=== PATIENT | male | born 1950 | race Caucasian/White ===

== ENCOUNTER → 2023-11-11 11:43 | Outpatient (REF) | payer MEDICARE, SELFPAY ==
[2023-11-11 12:27] LABS: % Basophils 0.6 % (0-2); % Eosinophils 5.8 % (0-6); % Lymphocytes 46.7 % (20.5-51.1); % Monocytes 7.5 % (1.7-9.3); % Neutrophils 39.4 % (42.2-75.2); Absolute Eosinophils 0.3 10^3/uL (0-0.7); Absolute Lymphocytes 2.5 10^3/uL (1.2-3.4); Absolute Monocytes 0.4 10^3/uL (0.1-0.6); Absolute Neutrophils 2.1 10^3/uL (1.4-6.5); Hematocrit 37.9 % (39.0-52.0); Hemoglobin 12.5 g/dL (13.0-18.0); Mean Corpuscular Hgb 31.9 pg (27.0-31.0); Mean Corpuscular Volume 96.7 fL (80.0-94.0); Mean Platelet Volume 9.9 fL (7.4-10.4); Nucleated Red Blood Cells % 0 % (-); Platelet Count 261 10^3/uL (130-400); Red Blood Cell Count 3.92 10^6/uL (4.70-6.10); Red Cell Dist. Width 12.5 % (11.5-14.5); White Blood Cell Count 5.3 10^3/uL (4.8-10.8)
== END ==
LOC: REG 11:43
PROVIDERS: ATTENDING PHYSICIAN Internal Medicine Gastroenterology; FAMILY PHYSICIAN Family Medicine
DX: K63.3 Ulcer of intestine (principal)
CPT/HCPCS: 36415; 85025

== ENCOUNTER → 2023-11-13 07:21 | Outpatient (REF) | payer MEDICARE, SELFPAY | LOC: MRI 3T 07:21 | PROVIDERS: ATTENDING PHYSICIAN Internal Medicine Gastroenterology; FAMILY PHYSICIAN Family Medicine | DX: K63.3 Ulcer of intestine (principal) | CPT/HCPCS: 72197; 74183; A9575 ==

== ENCOUNTER → 2023-11-18 13:24 | Outpatient (REF) | payer MEDICARE, SELFPAY ==
[2023-11-22 02:29] LABS: Calprotectin, Fecal 176 ug/g (<=49)
== END ==
LOC: REG 13:24
PROVIDERS: ATTENDING PHYSICIAN Internal Medicine Gastroenterology; FAMILY PHYSICIAN Family Medicine
DX: K63.3 Ulcer of intestine (principal)
CPT/HCPCS: 83993

== ENCOUNTER → 2024-01-07 15:27 | Outpatient (REF) | payer MEDICARE, SELFPAY ==
[2024-01-07 16:32] LABS: % Basophils 0.5 % (0-2); % Eosinophils 4.3 % (0-6); % Immature Granulocytes 0.2 % (0-0.5); % Lymphocytes 33.9 % (20.5-51.1); % Monocytes 7.4 % (1.7-9.3); % Neutrophils 53.7 % (42.2-75.2); Absolute Eosinophils 0.3 10^3/uL (0-0.7); Absolute Lymphocytes 2.1 10^3/uL (1.2-3.4); Absolute Monocytes 0.5 10^3/uL (0.1-0.6); Absolute Neutrophils 3.3 10^3/uL (1.4-6.5); Hematocrit 36.8 % (39.0-52.0); Hemoglobin 12.3 g/dL (13.0-18.0); Mean Corp Hgb Conc. 33.4 g/dL (33.0-37.0); Mean Corpuscular Hgb 31.1 pg (27.0-31.0); Mean Corpuscular Volume 93.2 fL (80.0-94.0); Mean Platelet Volume 10.1 fL (7.4-10.4); Nucleated Red Blood Cells % 0 % (-); Platelet Count 260 10^3/uL (130-400); Red Blood Cell Count 3.95 10^6/uL (4.70-6.10); Red Cell Dist. Width 12.2 % (11.5-14.5); White Blood Cell Count 6.1 10^3/uL (4.8-10.8)
[2024-01-07 16:43] LABS: Iron 79 ug/dl (49-181)
[2024-01-07 16:53] LABS: Percent Saturation 26 % (20-50); Total Iron Binding Capacity 298 ug/dl (261-462)
[2024-01-11 12:03] LABS: Calprotectin, Fecal 58 ug/g (<=49)
== END ==
LOC: REG 15:27
PROVIDERS: ATTENDING PHYSICIAN Physician Assistant; FAMILY PHYSICIAN Family Medicine
DX: K63.3 Ulcer of intestine (principal); D64.0 Hereditary sideroblastic anemia
CPT/HCPCS: 36415; 82728; 83540; 83550; 83993; 85025

== ENCOUNTER → 2024-04-07 12:23 | Outpatient (REF) | payer MEDICARE, SELFPAY ==
[2024-04-07 13:27] LABS: % Basophils 0.7 % (0-2); % Eosinophils 6.4 % (0-6); % Immature Granulocytes 0.2 % (0-0.5); % Lymphocytes 38.6 % (20.5-51.1); % Monocytes 8.5 % (1.7-9.3); % Neutrophils 45.6 % (42.2-75.2); Absolute Eosinophils 0.4 10^3/uL (0-0.7); Absolute Lymphocytes 2.2 10^3/uL (1.2-3.4); Absolute Monocytes 0.5 10^3/uL (0.1-0.6); Absolute Neutrophils 2.6 10^3/uL (1.4-6.5); Hematocrit 35.1 % (39.0-52.0); Hemoglobin 11.8 g/dL (13.0-18.0); Mean Corp Hgb Conc. 33.6 g/dL (33.0-37.0); Mean Corpuscular Hgb 31.6 pg (27.0-31.0); Mean Corpuscular Volume 93.9 fL (80.0-94.0); Nucleated Red Blood Cells % 0 % (-); Platelet Count 240 10^3/uL (130-400); Red Blood Cell Count 3.74 10^6/uL (4.70-6.10); Red Cell Dist. Width 12.4 % (11.5-14.5); White Blood Cell Count 5.8 10^3/uL (4.8-10.8)
[2024-04-07 13:59] LABS: Iron 47 ug/dl (49-181)
[2024-04-07 14:09] LABS: Percent Saturation 15 % (20-50); Total Iron Binding Capacity 300 ug/dl (261-462)
[2024-04-07 14:35] LABS: Ferritin 86.9 ng/ml (17.9-464.0)
== END ==
LOC: REG 12:23
PROVIDERS: ATTENDING PHYSICIAN Internal Medicine Gastroenterology; FAMILY PHYSICIAN Family Medicine
DX: K63.3 Ulcer of intestine (principal); D64.9 Anemia, unspecified
CPT/HCPCS: 36415; 82728; 83540; 83550; 85025

== ENCOUNTER → 2024-04-29 15:52 | Outpatient (REF) | payer MEDICARE, SELFPAY ==
[2024-04-29 16:42] LABS: % Basophils 0.4 % (0-2); % Eosinophils 5.5 % (0-6); % Lymphocytes 39.6 % (20.5-51.1); % Monocytes 8.1 % (1.7-9.3); % Neutrophils 46.4 % (42.2-75.2); Absolute Eosinophils 0.3 10^3/uL (0-0.7); Absolute Lymphocytes 1.9 10^3/uL (1.2-3.4); Absolute Monocytes 0.4 10^3/uL (0.1-0.6); Absolute Neutrophils 2.2 10^3/uL (1.4-6.5); Hematocrit 32.1 % (39.0-52.0); Hemoglobin 11.1 g/dL (13.0-18.0); Mean Corp Hgb Conc. 34.6 g/dL (33.0-37.0); Mean Corpuscular Hgb 32.6 pg (27.0-31.0); Mean Corpuscular Volume 94.4 fL (80.0-94.0); Mean Platelet Volume 10.3 fL (7.4-10.4); Nucleated Red Blood Cells % 0 % (-); Platelet Count 217 10^3/uL (130-400); Red Cell Dist. Width 12.2 % (11.5-14.5); White Blood Cell Count 4.7 10^3/uL (4.8-10.8)
[2024-04-29 16:52] LABS: Iron 55 ug/dl (49-181)
[2024-04-29 16:57] LABS: Depakane 41.2 ug/ml (50.0-120.0)
[2024-04-29 17:29] LABS: Ferritin 97.6 ng/ml (17.9-464.0)
== END ==
LOC: REG 15:52
PROVIDERS: ATTENDING PHYSICIAN Internal Medicine Gastroenterology; FAMILY PHYSICIAN Family Medicine
DX: K63.3 Ulcer of intestine (principal); D64.9 Anemia, unspecified
CPT/HCPCS: 36415; 80164; 82728; 83540; 83993; 85025

== ENCOUNTER → 2024-05-17 11:22 | Outpatient (REF) | payer MEDICARE, SELFPAY | LOC: REG 11:22 | PROVIDERS: ATTENDING PHYSICIAN Internal Medicine Gastroenterology; FAMILY PHYSICIAN Family Medicine | DX: K63.3 Ulcer of intestine (principal) | CPT/HCPCS: 83520; 83993 ==

== ENCOUNTER → 2024-07-28 13:57 | Outpatient (REF) | payer MEDICARE, SELFPAY ==
[2024-07-28 15:09] LABS: % Basophils 0.6 % (0-2); % Eosinophils 4.3 % (0-6); % Immature Granulocytes 0.2 % (0-0.5); % Lymphocytes 28.6 % (20.5-51.1); % Monocytes 8.2 % (1.7-9.3); % Neutrophils 58.1 % (42.2-75.2); Absolute Eosinophils 0.2 10^3/uL (0-0.7); Absolute Lymphocytes 1.5 10^3/uL (1.2-3.4); Absolute Monocytes 0.4 10^3/uL (0.1-0.6); Absolute Neutrophils 3.1 10^3/uL (1.4-6.5); Hematocrit 37.5 % (39.0-52.0); Hemoglobin 12.7 g/dL (13.0-18.0); Mean Corp Hgb Conc. 33.9 g/dL (33.0-37.0); Mean Corpuscular Hgb 30.5 pg (27.0-31.0); Mean Corpuscular Volume 90.1 fL (80.0-94.0); Mean Platelet Volume 9.9 fL (7.4-10.4); Nucleated Red Blood Cells % 0 % (-); Platelet Count 254 10^3/uL (130-400); Red Blood Cell Count 4.16 10^6/uL (4.70-6.10); Red Cell Dist. Width 12.5 % (11.5-14.5); White Blood Cell Count 5.4 10^3/uL (4.8-10.8)
[2024-07-28 15:22] LABS: Iron 84 ug/dl (49-181)
== END ==
LOC: RAD 13:57
PROVIDERS: ATTENDING PHYSICIAN Internal Medicine Gastroenterology; FAMILY PHYSICIAN Family Medicine; OTHER PHYSICIAN Nurse Practitioner; REFERRING PHYSICIAN Specialist
DX: K63.3 Ulcer of intestine (principal); M25.512 Pain in left shoulder
CPT/HCPCS: 36415; 73030; 82728; 83540; 85025

== ENCOUNTER → 2024-08-18 11:22 | Outpatient (REF) | payer MEDICARE, SELFPAY | LOC: REG 11:22 | PROVIDERS: ATTENDING PHYSICIAN Internal Medicine Gastroenterology | DX: K63.3 Ulcer of intestine (principal) | CPT/HCPCS: 83993 ==

== ENCOUNTER 2024-12-16 09:06 | Inpatient (IN) | payer MEDICARE, SELFPAY ==
[2024-11-25 14:05] LABS: Hematocrit 37.6 % (39.0-52.0); Hemoglobin 12.4 g/dL (13.0-18.0); Mean Corpuscular Hgb 31.6 pg (27.0-31.0); Mean Corpuscular Volume 95.7 fL (80.0-94.0); Mean Platelet Volume 10.1 fL (7.4-10.4); Platelet Count 286 10^3/uL (130-400); Red Blood Cell Count 3.93 10^6/uL (4.70-6.10); Red Cell Dist. Width 12.7 % (11.5-14.5); White Blood Cell Count 5.2 10^3/uL (4.8-10.8)
[2024-11-25 14:08] VITALS: BMI 30.9
[2024-11-25 14:11] LABS: ALT (SGPT) 16 U/L (0-50); AST (SGOT) 21 U/L (17-59); Albumin 4.4 g/dl (3.5-5.0); Alkaline Phosphatase 89 U/L (38-126); Blood Urea Nitrogen 26 mg/dl (9-20); Calcium 9.7 mg/dl (8.4-10.2); Carbon Dioxide 33 mmol/L (22-30); Chloride 101 mmol/L (98-107); Estimated Creatinine Clearance 66 ml/min; Glucose 91 mg/dl (70-99); Potassium 5.1 mmol/L (3.5-5.1); Sodium 142 mmol/L (135-145); Total Bilirubin 0.3 mg/dl (0.2-1.3); eGFR > 60.00
--- NOTE | 2024-11-25 14:58 | HPS.HSE ---
Family Physician
-
Family Physician: Efraín Adam
Chief Complaint
-
Advanced primary osteoarthritis of the left knee.
History of Present Illness
The patient is a 74-year-old male presenting today for advanced primary osteoarthritis of the left knee. The patient reports significant left knee pain associated with this diagnosis. He notes that his current left knee pain is greatly
interfering with his activities of daily living and is overall impacting his quality of life. He has tried and failed multiple conservative treatment measures in the past for his left knee pain. These conservative treatment measures include activity
modification, self-directed therapeutic exercises, medical management with Tylenol, Hydromorphone extended release, and Oxycodone as needed, intra-articular injections, and the application of ice and/or heat. Recent x-ray findings of the left knee
confirmed advanced medial joint space narrowing and posterior osteophyte formation. He was determined to be in need of a left total knee arthroplasty. He denies any current complaints today such as chest pain, shortness of breath, palpitations,
nausea, vomiting, diarrhea, lightheadedness, dizziness, cough, sore throat, or fever.
Medical History
Past Medical History
Past Medical History: Reports Other
Additional Past Medical History:
1. Osteoarthritis, status post right reverse total shoulder arthroplasty, 12/2021, by Dr. Damion Moreira.
2. Hypertension.
3. Hypercholesterolemia.
4. Coronary artery disease/NSTEMI, 2008, treated medically.
5. Orthostatic hypotension.
6. Obstructive sleep apnea, non-compliant with CPAP.
7. GERD.
8. Colon polyps.
9. Irritable bowel syndrome.
10. Cholelithiasis, asymptomatic.
11. Remote hepatitis B.
12. History of ileal erosions.
13. Frequent headaches.
14. Small lacunar infarct anterior limb of internal capsule bilaterally on head CT 2014.
15. Cervical stenosis with radiculopathy.
16. Multilevel degenerative disc disease.
17. Sciatica.
18. BPH.
19. Staph aureus and Strep pyogenes cellulitis of right lower extremity, 2008, treated with IV Cefazolin.
20. Ambulatory dysfunction with balance difficulties and history of falls.
21. Chronic pain syndrome with opioid dependence.
22. Multifactorial anemia.
23. Anxiety.
24. Depression.
25. Bipolar disorder.
26. Glaucoma.
27. Insomnia.
28. Prediabetes, A1c 5.7.
29. Obesity, BMI 30.9.
Past Surgical History: Reports Other
Additional Past Surgical History:
1. Right reverse total shoulder arthroplasty, 12/2021, by Dr. Damion Moreira.
2. Right rotator cuff repair.
3. Bilateral carpal tunnel release.
4. Left knee partial medial and lateral meniscectomy x2.
5. L4-L5 laminectomy.
6. Anterior cervical discectomy and fusion.
7. Open reduction, internal fixation of left forearm and pelvis fracture.
8. LASIK eye surgery.
9. Glaucoma surgery.
10. Bilateral cataract extraction.
11. Multiple colonoscopies.
12. Multiple endoscopies.
Social History
Tobacco: Non-smoker
Alcohol: None
Personal: (He reports his ex-, son, and sister in law will all be helping him post-procedure. He is hopeful to do outpatient PT starting the Friday after his surgery. )
Living: Alone (in a 2 story home with 1 step to enter in. His bedroom is reportedly on the second floor; however, he typically sleeps in a recliner on the first floor. There is a powder room on the first floor. )
Family History
Family History: Not pertinent
Allergies / Home Medications
Allergy/Medication List:
Home medications:
1. Lisinopril 2.5 mg p.o. daily.
2. Omeprazole 20 mg p.o. daily.
3. Ferrous sulfate 325 mg p.o. every evening.
4. Oxycodone 10-20 mg p.o. every 8 hours as needed.
5. Hydromorphone extended release 12 mg p.o. daily.
6. Divalproex sodium extended release 500 mg p.o. at bedtime.
7. Cyanocobalamin a 1000 mcg p.o. every evening.
8. Tamsulosin 0.4 mg p.o. daily.
9. Metoprolol Tartrate 25 mg p.o. daily.
10. Duloxetine HCL 60 mg p.o. every evening.
11. Bupropion HCL 150 mg p.o. twice a day.
12. Budesonide 3 mg p.o. daily.
13. Colace 100 mg p.o. twice a day.
14. Atorvastatin calcium 20 mg p.o. every evening.
15. Milk of magnesia 15 ml p.o. daily as needed.
16. Quetiapine 50 mg p.o. at bedtime.
17. Zinc 50 mg p.o. daily.
Allergies: Cyclobenzaprine.
Review of Systems
-
A 12 point ROS was completed and negative except as noted: Yes
Physical Exam
Vital Signs
Blood pressure 116/79. Heart rate 87. Respirations 18. Pulse ox 97%.
Height 5 feet, 9 inches. Weight 95 kg. BMI 30.9.
Physical Exam
General: Well Developed, Well Nourished and No Apparent Distress
HEENT: NormoCephalic, Moist mucous membranes, Atraumatic and PERRLA
Respiratory: Clear
Cardiac: Regular Rhythm
GI: Soft, Non Tender, Non Distended and Other (Obese. )
Musculoskeletal: Other (Left knee and lower extremity: Varus alignment. Trace effusion. ROM 5-130. Tenderness to palpation of medial joint line and peripatellar. Pain noted with flexion and abduction of left shoulder. )
Skin: Warm and Dry
Neuro: AO x 3 and Nonfocal/grossly intact
Laboratory Results
-
11/25/24 12:58
11/25/24 12:58
Laboratory Results
Total Bilirubin 0.3 mg/dl (0.2-1.3) 11/25/24 12:58
AST 21 U/L (17-59) 11/25/24 12:58
ALT 16 U/L (0-50) 11/25/24 12:58
Alkaline Phosphatase 89 U/L (38-126) 11/25/24 12:58
Hemoglobin A1c 5.7.
MRSA nasal screen negative.
EKG to be provided by Cardiology.
Impression/Plan
-
CLEARANCES:
1. Primary medical, Dr. Efraín Adam, cleared.
Primary medical phone number: [phone].
2. Cardiology, Dr. Jack Carson, cleared.
3. Dental waived.
IMPRESSION/PLAN:
1. Advanced primary osteoarthritis of the left knee in need of a left total knee arthroplasty by Dr. Shaka Perez on 12/16/2024. The benefits and risks of the procedure have been explained to the patient. The patient understands these risks and
wishes to proceed.
2. DVT prophylaxis: Aspirin with bilateral venous compression devices.
3. Orthostatic hypotension: We will monitor orthostatic vital signs throughout his admission. He will be provided with intravenous fluids and Midodrine will be ordered if felt indicated.
4. Ambulatory dysfunction with balance difficulties and history of falls: The patient will be placed on fall precautions post-operatively.
5. Chronic pain syndrome with opioid dependence: Dr. Villalta of pain management would prefer Orthopedics initially handle the patient's pain management post-procedure. He has, however, recommended the patient increase his Oxycodone from every 8
hours as needed to every 4-6 hours as needed (max of 5 doses daily) for breakthrough pain. He will continue his Hydromorphone ER. He was advised to take this the morning of his procedure and bring it in with him for inpatient use. We will also
include Lyrica and a Prednisone steroid taper. Valium will be considered at bedtime as needed.
6. Multifactorial anemia: His anemia is in the setting of both iron and vitamin B12 deficiency. He was advised to continue both of these supplements pre-operatively. The patient's hemoglobin will be monitored closely post-procedure.
7. Left shoulder dysfunction: The patient reported ongoing left shoulder discomfort and stiffness during his pre-operative appointment. He was noted to have pain with flexion and abduction of the left shoulder. The patient was encouraged to mention
this to his surgeon's office; however, he declined. He mentioned he wanted to address his left knee first before perusing treatment for the shoulder. Concerns were discussed with his surgeon pre-operatively. We will assess further with PT and OT
while inpatient and await their recommendations regarding discharge planning. As stated previously, the patient would prefer outpatient physical therapy if able.
Patient's phone number: [phone].
Patient's contact (Yissel Phipps - Sister): [phone].
[2024-11-25 15:36] VITALS: BMI 30.9
[2024-11-26 12:45] LABS: Glycohemoglobin (HgbA1c) 5.7 % (4.0-5.6)
[2024-12-16] VITALS (15 sets, daily range): BP systolic 129–157; BP diastolic 73–99; PULSE 81; O2SAT 97
--- NOTE | 2024-12-16 07:58 | W.PN.UPDATE ---
Update Note
Progress Note Update
L knee OA s/p L TKA w/ Dr Perez 12/16/24
- s/p R Reverse TSA, 12/2021, by Dr Moreira
DVT prophylaxis - ASA, b/l venous foot pumps
HTN - + parameters - monitor BP
Orthostatic hypotension - orthostatics q8h
- IVF running
- Will order Midodrine w/ SBP parameters
- Minimize opioids as able
Obstructive sleep apnea, non-compliant with CPAP - monitor O2
- IS
- Add supplemental O2 HS
GERD - continue PPI therapy
History of ileal erosions - minimize NSAIDs
Cervical stenosis with radiculopathy and sciatica - continue home Duloxetine
- Add Lyrica to accommodate for post-surgical pain
BPH - monitor voids
- Continue home Flomax
Staph aureus and Strep pyogenes cellulitis of right lower extremity, 2008, treated with IV Cefazolin - IV Ancef trae-op
- Would benefit from Cefadroxil upon d/c
Ambulatory dysfunction with balance difficulties and history of falls - fall precautions
Chronic pain syndrome with opioid dependence - continue hydromorphone ER
- Multifactorial pain regimen to include Tylenol ATC, Lyrica BID, Valium HSPRN, Duloxetine, Prednisone taper, and Oxycodone 10-15 mg q4hprn for breakthrough pain
- Of note, ADR to Flexeril
Multifactorial anemia - non-invasive hgb in AM
- Continue PO iron, B12
Hypercholesterolemia
Coronary artery disease/NSTEMI, 2008, treated medically
Colon polyps
Irritable bowel syndrome
Cholelithiasis, asymptomatic
Remote hepatitis B
Frequent headaches.
Small lacunar infarct anterior limb of internal capsule bilaterally on head CT 2014
Multilevel degenerative disc disease
Anxiety
Depression
Bipolar disorder
Glaucoma
Insomnia
Prediabetes, A1c 5.7
Obesity, BMI 30.9
[2024-12-16] MEDS: NORMOSOL-R/PLASMALYTE-A 1000 IV ×2 (09:29→16:25)
[2024-12-16] MEDS: CELEBREX 200 MG PO (09:30)
[2024-12-16] MEDS: TYLENOL 650 MG PO ×3 (09:30→21:22)
[2024-12-16] MEDS: DILAUDID 0.5 MG IV ×2 (13:53→14:14)
[2024-12-16] MEDS: ROXICODONE 5 MG PO (14:33)
[2024-12-16] MEDS: TORADOL 15 MG IV (14:33)
--- NOTE | 2024-12-16 15:38 | PTCARENOTE ---
Patient admitted from PACU post left total knee replacement.The patient reports his pain at a 4 out of 10.Neurovascular assessment is within normal limits and ongoing.Vital signs are stable.The dressing is intact without drainage.The patient is in
his bed with the call agustin in reach.
[2024-12-16] MEDS: LIPITOR 20 MG PO (16:21)
[2024-12-16] MEDS: DELTASONE 40 MG PO (16:21)
[2024-12-16] MEDS: PROTONIX 40 MG PO (16:21)
[2024-12-16] MEDS: FLOMAX 0.4 MG PO (16:24)
[2024-12-16] MEDS: LOPRESSOR 25 MG PO (16:24)
--- NOTE | 2024-12-16 17:31 | OR.RPT ---
Operative Report
Operative Report
Orthopaedic Surgery Operative Note
DATE OF OPERATION: 12/16/2024
PREOPERATIVE DIAGNOSES: Osteoarthritis, left knee.
POSTOPERATIVE DIAGNOSES: Osteoarthritis, left knee.
OPERATION PERFORMED:
1) Left total knee arthroplasty (CPT 77206)
2) Intraosseous administration of analgesic (CPT 07082)
SURGEON: Shaka Perez MD
ASSISTANTS: Paulie Chang PA-C who helped with patient and limb positioning and retraction
ANESTHESIA: Spinal by anesthesia plus intraoperative infusion of morphine into the tibial metaphysis by Dr. Perez
COMPLICATIONS: None.
ESTIMATED BLOOD LOSS: 20mL
DRAINS: None
TOURNIQUET TIME: 61 minutes.
IMPLANTS:
- Darren Persona CR Femur, size 11
- Darren Persona tibia base plate, size F
- Darren Persona ultracongruent articular surface, 10 mm
- DJO [place] bone cement
INDICATIONS: The patient presented to my office with debilitating left knee pain due to osteoarthritis. We reviewed the natural history of this problem, as well as the risks, benefits, and alternatives of various treatment options. The patient
exhausted all nonoperative treatment options and wished to proceed with knee replacement surgery. The patient understood the risks which included, but were not limited to, bleeding, infection, failure to relieve pain, more pain than preop, damage to
blood vessels and nerves, need for reoperation, mechanical failure of the implants, wound healing problems, stiffness, instability, blood clot, pulmonary embolism, myocardial infarction, pneumonia, arrhythmia, CVA, and . The patient accepted
these risks and wished to proceed. All questions were answered, and informed consent was obtained.
PROCEDURE IN DETAIL: The patient was identified in the preoperative holding area. The left knee was identified as the operative site. The patient was taken in the operating room and placed in a supine position on the operating table. Spinal
anesthesia was performed. IV antibiotics and tranexamic acid were administered. An SCD was placed on the right lower extremity. A well-padded tourniquet was placed on the proximal thigh. All bony prominences were well padded. The left lower
extremity was prepped and draped in the usual sterile fashion.
We performed a surgical time-out. An interarticular block was performed with local anesthetic with epinephrine. The limb was exsanguinated with an Esmarch bandage, then the tourniquet was inflated to 250 mmHg. I performed interosseous administration
of morphine-saline solution via a Jamshidi style intraosseous needle into the proximal medial tibial metaphysis as described by Angel Contreras MD. This was performed to aid in pain control. A midline skin incision was made followed by a medial
parapatellar arthrotomy. A subperiosteal peel was performed on the medial tibia. I excised part of the infrapatellar fat pad to improve our visualization as well as tissue over anterior femur. The patella was everted and the knee was flexed. I
excised the remnants of the anterior and posterior cruciate ligaments as well as tibial and femoral osteophytes with rongeurs. Throughout the case, the soft tissues were quite tight and contracted posteriorly and along extensor mechanism.
The knee was flexed, and the extramedullary tibial cutting guide was aligned. [place] was aligned at neutral, rotation was centered on the tibial tubercle, and coronal alignment was aligned with the mechanical axis of the tibia and center of the ankle
joint. The cut height was 10mm off the lateral tibia joint surface. The guide was secured into place. The MCL and LCL were protected. The tibia surface was cut. The cut surface was inspected after removal to ensure appropriate height and slope based
on the preoperative plan. The cut was checked with a drop paul. It was centered nicely at the ankle.
A drill was used to open the femoral canal. The intramedullary distal femoral cutting guide was inserted into the femur. This was set at 5 degrees +1 due to preop flexion contracture. This was secured into place with three pins. The cut level was
checked with an alo wing. The distal femur was cut through the cutting guide. The IM guide was reinserted to double check that the level of resection was flush and in appropriate alignment.
Moorhead's line and the transepicondylar axis were marked on the femur. The femoral sizing guide was applied to the anterior femur. Pins were inserted, and the 4-in-1 cutting guide was applied and secured into place. The rotation was compared to
Moorhead's line, the transepicondylar axis, and the neutral tibia cut and was found to be appropriate. The width was checked and found to be appropriate and lateralized on the femur. The anterior, posterior, and chamfur cuts were made. A lamina
econometrics professor was used to open the flexion gap, and posterior osteophytes were removed with a curved osteotome. The remnant medial and lateral meniscus were also removed. I prophylactically cauterized the lateral geniculate arteries. A 10mm spacer block
was applied to the flexion gap and was noted to be balanced medially and laterally. The knee was extended, and the block showed symmetric to extension and flexion gaps.
The tibia was exposed and sized. Rotation was set in line with the tibial tubercle and congruent with the femur. The trial was secured into place with two pins. The trial femur was impacted into place, and a trial articular surface was placed. The
knee was taken through range of motion and noted to be stable throughout the arc of motion without gaping or excess tension. The patella tracked throughout the arc of motion without need for further releases. No full thickness cartilage defects on
patella.
The trials were removed. The tibia keel was prepared with the punch and the drill. The bone surfaces were irrigated with sterile saline and dried. The cement was mixed in a vacuum mixer. Cement gun was used to apply cement to the tibial surface and
the undersurface of the tibial implant. Cement was pressurized into the tibial canal and tibia surface. The tibial component was impacted into place. Excess cement was removed. Cement was applied to the femoral surface and the femoral component. The
femoral component was impacted into place, and excess cement removed. A trial articular surface was inserted, and the knee was extended while the cement polymerized. The tourniquet was let down, and meticulous hemostasis was achieved. Dilute
betadine was poured into the wound and allowed to soak for 3 minutes. The knee was irrigated with copious normal saline.
Once the cement was polymerized, the trial articular surface was removed. Any excess cement was removed. The knee was trialed, and the final articular surface was selected and inserted into the tibial locking mechanism. The knee was reduced. A fresh
drape was applied to the surgical field.
The arthrotomy was closed with 0-PDS. Once closed, an interarticular block was performed with local anesthetic with epi. The deep dermal layer was closed with 2-0 PDS, and the subcuticular skin was closed with 3-0 monocryl. A Dermabond Prineo
dressing was applied to the skin in full flexion. Once this was completely dry, a sterile waterproof dressing was applied.
The anesthesia team performed an adductor canal block in the OR. The patient awoke from anesthesia without any difficulties. The sponge and instrument counts were correct x2 at the end of the case.
Elver Perez MD
[2024-12-16] MEDS: ANCEF 5 IV (18:16)
[2024-12-16] MEDS: CYMBALTA DELAYED RELEASE 60 MG PO (18:16)
[2024-12-16] MEDS: ASPIRIN 325 MG PO (18:16)
[2024-12-16] MEDS: FEOSOL 325 MG PO (18:17)
[2024-12-16] MEDS: VITAMIN B-12 1000 MCG PO (18:17)
[2024-12-16] MEDS: COLACE PO (21:20)
[2024-12-16] MEDS: LYRICA 150 MG PO (21:22)
[2024-12-16] MEDS: DEPAKOTE ER (24 HR RELEASE) 500 MG PO (21:23)
[2024-12-16] MEDS: SEROQUEL 50 MG PO (21:23)
[2024-12-16] MEDS: WELLBUTRIN XL (24 hour extended release) 150 MG PO (21:23)
[2024-12-16] MEDS: BACTROBAN 2% OINTMENT 1 APPLIC NASAL (21:24)
[2024-12-17] MEDS: TYLENOL PO ×2 (01:20→03:58)
[2024-12-17] MEDS: ANCEF 5 IV (02:23)
[2024-12-17 03:25] VITALS: BP 140/74
[2024-12-17 07:15] VITALS: BP 130/60
[2024-12-17] MEDS: NON-FORMULARY ITEM 12 MG PO (08:02)
[2024-12-17] MEDS: DELTASONE 40 MG PO (08:04)
[2024-12-17] MEDS: TYLENOL 650 MG PO (08:04)
[2024-12-17] MEDS: WELLBUTRIN XL (24 hour extended release) 150 MG PO (08:04)
[2024-12-17] MEDS: FLOMAX 0.4 MG PO (08:05)
[2024-12-17] MEDS: COLACE 100 MG PO (08:05)
[2024-12-17] MEDS: PROTONIX 40 MG PO (08:05)
[2024-12-17] MEDS: ASPIRIN 325 MG PO (08:05)
[2024-12-17] MEDS: LIPITOR 20 MG PO (08:06)
[2024-12-17] MEDS: LOPRESSOR 25 MG PO (08:06)
[2024-12-17] MEDS: LYRICA 150 MG PO (08:07)
[2024-12-17] MEDS: BACTROBAN 2% OINTMENT 1 APPLIC NASAL (08:07)
[2024-12-17 08:50] VITALS: BP 151/76; BP 153/81; PULSE 77; O2SAT 97
--- NOTE | 2024-12-17 09:38 | CM ---
Reviewed the chart notes and spoke with the patient at the bedside. The patient resides alone in a two story home with one step to enter. The patient reports having a cane, rolling walker, and shower chair. The patient has had VN in the past, but
could not recall the name of the agency. The patient confirmed his pharmacy of choice is the [facility] The patient will be going to outpatient therapy at [facility]. CM continues to be available to patient/family and is
monitoring medical plan for needs at discharge.
Plan: Discharge to home with outpatient therapy.
--- NOTE | 2024-12-17 09:40 | W.PN.ORTHO ---
Today's Communication / Plan
-
Await PT and OT recs.
D/c later today if remaining clinically stable.
Assessment
.
Distal Motor Intact: Yes
Dressing:
Clean, dry and intact.
Assessment:
L knee OA s/p L TKA w/ Dr Perez 12/16/24
- s/p R Reverse TSA, 12/2021, by Dr Moreira
DVT prophylaxis - ASA, b/l venous foot pumps
HTN - + parameters - BP overall stable
Orthostatic hypotension - BPs overall stable
- s/p IVF
- Did order Midodrine w/ SBP parameters while inpatient; needed minimally
- Minimize opioids as able
Obstructive sleep apnea, non-compliant with CPAP - O2 stable on RA
- IS
- Added supplemental O2 HS
GERD - continue PPI therapy
History of ileal erosions - minimize NSAIDs
Cervical stenosis with radiculopathy and sciatica - continue home Duloxetine
- Added Lyrica to accommodate for post-surgical pain
BPH - voiding appropriately w/ home Flomax
Staph aureus and Strep pyogenes cellulitis of right lower extremity, 2008, treated with IV Cefazolin - IV Ancef trae-op
- Would benefit from Cefadroxil upon d/c
Ambulatory dysfunction with balance difficulties and history of falls - fall precautions
Chronic pain syndrome with opioid dependence - continue hydromorphone ER
- Continue multifactorial pain regimen to include Tylenol ATC, Lyrica BID, Valium HSPRN, Duloxetine, Prednisone taper, and Oxycodone 10-15 mg q4hprn for breakthrough pain
- Of note, ADR to Flexeril
Multifactorial anemia - non-invasive hgb 13.1 POD 1
- Continue PO iron, B12
Hypercholesterolemia
Coronary artery disease/NSTEMI, 2008, treated medically
Colon polyps
Irritable bowel syndrome
Cholelithiasis, asymptomatic
Remote hepatitis B
Frequent headaches.
Small lacunar infarct anterior limb of internal capsule bilaterally on head CT 2014
Multilevel degenerative disc disease
Anxiety
Depression
Bipolar disorder
Glaucoma
Insomnia
Prediabetes, A1c 5.7
Obesity, BMI 30.9
Plan
.
Surgery / Date: L TKA w/ Dr Perez 12/16/24
DVT Prophylaxis: Aspirin
Activity:
Out of bed.
PT/OT
Discharge Plan: Home w/ Outpatient PT
Subjective
.
.:
Patient resting comfortably in his chair.
L knee pain overall well controlled.
Denies any new significant complaints.
Eager for potential d/c today.
Vital Signs and Labs
.
Vital Signs and Labs:
Lab Results
11/25/24 12:58
11/25/24 12:58
Temp Pulse Resp BP Pulse Ox
98.1 F 72 16 130/60 98
12/17/24 07:15 12/17/24 08:06 12/17/24 07:15 12/17/24 08:07 12/17/24 07:15
Non-invasive Hgb result: 13.1
Physical Exam
-
HEENT: No pallor, cyanosis, or jaundice. Throat clear.
NECK: Supple. No JVD.
RESPIRATORY: Lungs clear to auscultation.
CVS: S1, S2 normal. RRR.�
ABDOMEN: Soft, non-tender. No distension. Obese.
EXTREMITIES: Expected post-surgical L knee edema. Strength equal, no calf pain with palpation/dorsiflexion. Calves soft.
RN PHYSICIAN OFFICE: AOx3. No focal deficits. title manager grossly intact
--- NOTE | 2024-12-17 09:54 | W.DS.TRANS ---
DC Summary - Lead Person
-
Discharge Instructions:
Discharge Diagnosis/Procedures L knee OA s/p L TKA w/ Dr Perez 12/16/24
Diet Regular
Activity As tolerated,With Walker
Driving Restrictions Not until seen by your Dr
Bathing Restrictions OK to Shower
Other Services PT
Wound Care Leave dressing on until seen by surgeon's office
for follow-up in 2 weeks.
Instructions:
Stand-Alone Forms: Total Hip/Knee Replacement D/C
Changes to Home Medications: Yes
Discharge Medications:
DC Medications w/original date entered in [employer]
cyanocobalamin (vitamin B-12) 1,000 mcg tablet 1,000 mcg PO QPM Supplement 12/14/21
divalproex 500 mg tablet,extended release 24 hr 500 mg PO HS Seizures 12/14/21
ferrous sulfate 325 mg (65 mg iron) tablet (iron) 325 mg PO QPM Supplement 12/14/21
tamsulosin 0.4 mg capsule 0.4 mg PO DAILY Urinary issue 12/14/21
omeprazole 20 mg capsule,delayed release 20 mg PO DAILY Gastrointestinal issue 12/17/21
atorvastatin 20 mg tablet (Lipitor) 20 mg PO DAILY High Cholesterol 11/25/24
bupropion HCl 150 mg 24 hr tablet, extended release 150 mg PO BID Mental Health/Anxiety 11/25/24
duloxetine 60 mg capsule,delayed release (Cymbalta) 60 mg PO QPM Mental Health/Anxiety 11/25/24
magnesium hydroxide 400 mg/5 mL oral suspension (Milk of Magnesia) 15 ml PO DAILY PRN constipation 11/25/24
metoprolol tartrate 25 mg tablet 25 mg PO DAILY Heart Disease/Condition 11/25/24
mupirocin 2 % topical ointment 1 applic intranasal BID #1 tube 11/25/24
quetiapine 50 mg tablet 50 mg PO HS Mental Health/Anxiety 11/25/24
zinc 50 mg tablet 50 mg PO DAILY Supplement 11/25/24
Saccharomyces boulardii 250 mg capsule (Florastor) 250 mg PO BID #14 caps 12/17/24
acetaminophen 325 mg tablet 650 mg (2 x 325 mg) PO Q4HWA #60 tabs 12/17/24
aspirin 325 mg tablet 325 mg PO DAILY #30 tabs 12/17/24
cefadroxil 500 mg capsule 500 mg PO BID #14 caps 12/17/24
docusate sodium 100 mg capsule 100 mg PO BID #30 caps 12/17/24
hydromorphone 12 mg tablet,extended release 24 hr 12 mg PO DAILY Chronic pain #0 tabs 12/17/24
lisinopril 2.5 mg tablet 2.5 mg PO DAILY Blood pressure #1 tab 12/17/24
ondansetron HCl 4 mg tablet 4 mg PO Q6H PRN nausea and vomiting #30 tabs 12/17/24
oxycodone 10 mg tablet 10 mg PO Q4HPRN PRN breakthrough pain #30 tabs 12/17/24
prednisone 10 mg tablet 40 mg (4 x 10 mg) PO TAPER #20 tabs 12/17/24
pregabalin 150 mg capsule (Lyrica) 150 mg PO BID neuropathic pain #15 caps 12/17/24
sennosides 8.6 mg tablet (Yuliana-gurvinder) 17.2 mg (2 x 8.6 mg) PO BID #30 tabs 12/17/24
Home Medication Changes
Saccharomyces boulardii 250 mg capsule (Florastor) 250 mg PO BID #14 caps 12/17/24
acetaminophen 325 mg tablet 650 mg (2 x 325 mg) PO Q4HWA #60 tabs 12/17/24
aspirin 325 mg tablet 325 mg PO DAILY #30 tabs 12/17/24
cefadroxil 500 mg capsule 500 mg PO BID #14 caps 12/17/24
docusate sodium 100 mg capsule 100 mg PO BID #30 caps 12/17/24
ondansetron HCl 4 mg tablet 4 mg PO Q6H PRN nausea and vomiting #30 tabs 12/17/24
oxycodone 10 mg tablet 10 mg PO Q4HPRN PRN breakthrough pain #30 tabs 12/17/24
prednisone 10 mg tablet 40 mg (4 x 10 mg) PO TAPER #20 tabs 12/17/24
pregabalin 150 mg capsule (Lyrica) 150 mg PO BID neuropathic pain #15 caps 12/17/24
sennosides 8.6 mg tablet (Yuliana-gurvinder) 17.2 mg (2 x 8.6 mg) PO BID #30 tabs 12/17/24
Pending Results: No
[2024-12-17 10:10] VITALS: BP 131/73; PULSE 71; O2SAT 96
--- NOTE | 2024-12-17 11:19 | CM ---
Reviewed the chart notes and spoke with the patient at the beside. IMM reviewed. Patient's son to transport home. Patient to be going to outpatient therapy.
== END 2024-12-17 11:46 | disposition home or self-care (01) | DRG 470 ==
LOC: 2 SOUTH 09:06
PROVIDERS: ADMITTING PHYSICIAN Orthopaedic Surgery; FAMILY PHYSICIAN Family Medicine
PROC: 0SRD0J9 Replacement of Left Knee Joint with Synthetic Substitute, Cemented, Open Approach (ICD-10-PCS; 2024-12-16)
DX: M17.12 Unilateral primary osteoarthritis, left knee (principal); F11.20 Opioid dependence, uncomplicated; I10 Essential (primary) hypertension; E78.00 Pure hypercholesterolemia, unspecified; I25.10 Atherosclerotic heart disease of native coronary artery without angina pectoris; I95.1 Orthostatic hypotension; G47.33 Obstructive sleep apnea (adult) (pediatric); K21.9 Gastro-esophageal reflux disease without esophagitis; K58.9 Irritable bowel syndrome, unspecified; E66.9 Obesity, unspecified; R73.03 Prediabetes; G47.00 Insomnia, unspecified; H40.9 Unspecified glaucoma; F31.9 Bipolar disorder, unspecified; F41.9 Anxiety disorder, unspecified; D64.9 Anemia, unspecified; G89.4 Chronic pain syndrome; N40.0 Benign prostatic hyperplasia without lower urinary tract symptoms; M48.02 Spinal stenosis, cervical region; M54.12 Radiculopathy, cervical region; Z60.2 Problems related to living alone; Z96.611 Presence of right artificial shoulder joint; I25.2 Old myocardial infarction; Z68.30 Body mass index [BMI] 30.0-30.9, adult; Z91.81 History of falling; Z91.199 Patient's noncompliance with other medical treatment and regimen due to unspecified reason; Z86.73 Personal history of transient ischemic attack (TIA), and cerebral infarction without residual deficits; Z86.0100 Personal history of colon polyps, unspecified
CPT/HCPCS: 36415; 73560; 80053; 83036; 85027; 87070; 97110; 97116; 97162; 97166; 97530; 97535; C1713; C1776

== ENCOUNTER 2025-01-17 21:40 | Inpatient (IN) | payer MEDICARE, SELFPAY ==
[2025-01-17] VITALS (7 sets, daily range): BP systolic 110–144; BP diastolic 58–80; BMI 29.4; BMI 29.2
--- NOTE | 2025-01-17 15:18 | ED.GENMED ---
History of Present Illness
General
Chief Complaint: Change in Mental Status
Time Seen by Provider: 01/17/25 15:07
History of Present Illness
History of Present Illness:
Patient is a 74-year-old male with history of hypertension, hyperlipidemia, CAD, orthostatic hypotension, osteoarthritis status post knee replacement December 16 presenting to the emergency department after a fall. Patient was last seen 2 days ago and
had a fall 2 days ago. He states he has had recurrent falls after the knee replacement. He states that the leg gives out. He has noticed swelling but states that has slightly improved. He did not hit his head. He did not lose consciousness. He
is on a blood thinner but does not recall the name of it. Today physical therapy came and found him on the floor so they brought him in for further evaluation. Patient's family member is at bedside who states that initially he was confused but
seems to be improving. During my evaluation there were some episodes of confusion where patient thought he did go to rehab but actually patient went home after her surgery. He denies any fevers chills chest pain difficulty breathing nausea
vomiting. He has nothing to eat or drink in the past 2 days. Per medics there was foul-smelling urine and concern for urine infection and that he seems to be noncompliant with his medications. Per chart review it appears that he is not on a blood
thinner.
Past History
Past History
ED Past Medical History: HTN and Other (Chronic back pain, Headaches, Hepatitis in Highschool, )
ED Past Surgical History: Orthopedic (Laminectomy, Carpal tunnel, Left knee surgery, Right shoulder repair, Cervical fusion. Fx pelvis with plate and screws, Right TSA reversal)
Social History
Tobacco: Non-smoker
Alcohol: None
Personal:
Living: with family
Phy Exam
Physical Exam
Physical Exam:
GENERAL: in no acute distress
HEENT: normocephalic, extraocular movements intact, dry oral mucosa
NECK: normal inspection
RESPIRATORY: no respiratory distress, clear to auscultation bilaterally
CARDIOVASCULAR: regular rate and rhythm
ABDOMEN/: soft, non-distended, non-tender to palpation, no rebound or guarding
EXTREMITIES: Left lower extremity with incision clean dry intact, mild lower extremity swelling
NEUROLOGIC: awake and alert, moves all extremities, no gross motor or sensory deficit
SKIN: warm
Course
Orders/Labs/Results
Orders:
Orders
01/17/25 14:28
CT Head W/o Iv Contrast Urgent
Comment:
Reason For Exam: head injury, on blood thinner
01/17/25 15:16
Electrocardiogram (*1) Urgent
Reason for Study: Tachycardia
EKG- Treatment ONCE
Urinalysis Reflex To Culture Urgent
0.9% Sodium Chloride 1000 ml [Nss] 1,000 ml IV BOLUS
Periph Venous Lwr Ext Left US [US Periph Venous LOWER Ext LT] Urgent
Comment:
Reason For Exam: lle swelling
01/17/25 15:24
Complete Blood Count/With Diff Urgent
Comprehensive Metabolic Panel Urgent
Total CK [Creatine Phosphokinase] Urgent
Abnormal Lab Results
01/17/25
15:24
RBC 3.03 L 10^6/uL
(4.70-6.10)
Hgb 9.2 L g/dL
(13.0-18.0)
Hct 28.1 L %
(39.0-52.0)
MCHC 32.7 L g/dL
(33.0-37.0)
Absolute Lymphs (auto) 0.7 L 10^3/uL
(1.2-3.4)
Neutrophils % 83.4 H %
(42.2-75.2)
Lymphocytes % 10.5 L %
(20.5-51.1)
Potassium 5.4 H mmol/L
(3.5-5.1)
BUN 48 H mg/dl
(9-20)
Creatine Kinase 576 H U/L
(55-170)
Total Protein 6.1 L g/dl
(6.3-8.2)
01/17/25 15:24
01/17/25 15:24
Vital Signs
Initial and Last Documented VS:
Initial Vital Signs
Temp Pulse Resp BP Pulse Ox
98.6 F 94 18 141/71 96
01/17/25 14:23 01/17/25 14:23 01/17/25 14:23 01/17/25 14:23 01/17/25 14:23
Last Documented Vital Signs
Temp Pulse Resp BP Pulse Ox
98.6 F 89 13 128/61 97
01/17/25 14:23 01/17/25 18:15 01/17/25 18:15 01/17/25 18:00 01/17/25 18:42
MDM/Problems Addressed
Differential Diagnosis Includes:
Patient is a 74-year-old man presenting to the emergency department after a fall 2 days ago where he was unable to get up. On arrival patient's vital signs are unremarkable and exam does show significantly dry oral mucosa. Concern for dehydration
with electrolyte derangement versus urine infection versus traumatic intracranial injury. Will check blood work EKG urine and CT scan of the head. Given the mild lower extremity swelling and the recurrent falls will rule out DVT. Will give
fluids. Patient will need admission given the multiple falls and generalized weakness and confusion though that has been improving.
*Critical Care Note
Total Time (30-74mins, 75-104mins- exclusive of procedures): Not Applicable
Update Note
Update Note:
Blood work notable for elevated BUN as well as a creatinine of 1.3. His CK is elevated at 576. He is receiving fluids. DVT study negative. CT scan with no acute abnormality. Given patient's fall with dehydration weakness and transient confusion
patient will need admission. Discussed with hospitalist who accepted. Urine pending at the time of admission.
ED Attending Note
-
Portions of this chart may have been created with voice recognition software.� Occasional wrong word or��sound alike� substitutions may have occurred due to the inherent limitations of voice recognition software.
Discharge Plan
Departure
Patient Disposition: Admit
Date of Disposition: 01/17/25
Time of Disposition: 19:09
Presentation/result/management discussed w/ accepting MD/DO: Hospitalist
Discharge Problem:
Weakness
Prescriptions:
No Action
cyanocobalamin (vitamin B-12) 1,000 MCG tablet
1,000 mcg PO QPM
tamsulosin 0.4 MG capsule
0.4 mg PO DAILY
ferrous sulfate [iron] 325 MG tablet
325 mg PO QPM
divalproex 500 MG tablet extended release 24 hr
500 mg PO HS
omeprazole 20 MG capsule,delayed release(DR/EC)
20 mg PO DAILY
atorvastatin [Lipitor] 20 mg Tablet
20 mg PO DAILY
magnesium hydroxide [Milk of Magnesia] 400 mg/5 mL Suspension
15 ml PO DAILY PRN (Reason: constipation)
bupropion HCl 150 mg Tablet Extended Release 24 Hr
150 mg PO BID
metoprolol tartrate 25 mg Tablet
25 mg PO DAILY
duloxetine [Cymbalta] 60 mg Capsule,Delayed Release(Dr/Ec)
60 mg PO QPM
mupirocin 2 % ointment
1 applic intranasal BID Qty: 1 0RF
Patient Comments:
applied today started1 week ago
quetiapine 50 mg Tablet
50 mg PO HS
zinc 50 mg Tablet
50 mg PO DAILY
aspirin 325 mg Tablet
325 mg PO DAILY Qty: 30 0RF
Rx Instructions:
Take daily x4 weeks for blood clot prevention
docusate sodium 100 mg Capsule
100 mg PO BID Qty: 30 0RF
oxycodone 10 mg Tablet
10 mg PO Q4HPRN MDD 6 PRN (Reason: breakthrough pain) Qty: 30 0RF
Rx Instructions:
Dx total joint.
Take 1 hour prior to therapy.
sennosides [Yuliana-gurvinder] 8.6 mg Tablet
17.2 mg PO BID Qty: 30 0RF
acetaminophen 325 mg Tablet
650 mg PO Q4HWA Qty: 60 0RF
Rx Instructions:
DO NOT exceed >4000 mg daily.
pregabalin [Lyrica] 150 mg capsule
150 mg PO BID Qty: 15 0RF
Rx Instructions:
Take twice a day for 5 days, then once daily for 5 days, then STOP.
ondansetron HCl 4 mg tablet
4 mg PO Q6H PRN (Reason: nausea and vomiting) Qty: 30 0RF
prednisone 10 mg tablet
40 mg PO TAPER Qty: 20 0RF
Rx Instructions:
4 TABS X 2 DAYS, 3 TABS X 2 DAYS, 2 TABS X 2 DAYS, 1 TAB X 2 DAYS, THEN STOP
cefadroxil 500 mg capsule
500 mg PO BID Qty: 14 0RF
Rx Instructions:
Start night of discharge and continue twice a day until finished.
Saccharomyces boulardii [Florastor] 250 mg capsule
250 mg PO BID Qty: 14 0RF
Rx Instructions:
Over the counter. Take while on antibiotic.
If unavailable, choose a different probiotic.
lisinopril 2.5 MG tablet
2.5 mg PO DAILY Qty: 1 0RF
Rx Instructions:
HOLD IF systolic blood pressure <130 while on post-surgical narcotics.
hydromorphone 12 mg Tablet Extended Release 24 Hr
12 mg PO DAILY Qty: 0 0RF
Rx Instructions:
Home medication.
Referrals:
Efraín Adam MD [Family Provider] -
Interventions
Interventions:
*Risk Screen - Suicide Last Done: 01/17/25 14:23
*General Assessment Last Done: 01/17/25 14:23
*ED COVID-19 Vaccine History Last Done: 01/17/25 14:23
ED- Neurological Assessment Last Done: 01/17/25 15:54
ED Swallowing Screen Last Done: 01/17/25 17:26
Discharge Date and Time
Print Language: SERBIAN
[2025-01-17] MEDS: NSS 1000 IV ×2 (15:24→22:58)
[2025-01-17 15:36] LABS: % Basophils 0.2 % (0-2); % Eosinophils 0.3 % (0-6); % Immature Granulocytes 0.2 % (0-0.5); % Lymphocytes 10.5 % (20.5-51.1); % Monocytes 5.4 % (1.7-9.3); % Neutrophils 83.4 % (42.2-75.2); Absolute Lymphocytes 0.7 10^3/uL (1.2-3.4); Absolute Monocytes 0.4 10^3/uL (0.1-0.6); Absolute Neutrophils 5.6 10^3/uL (1.4-6.5); Hematocrit 28.1 % (39.0-52.0); Hemoglobin 9.2 g/dL (13.0-18.0); Mean Corp Hgb Conc. 32.7 g/dL (33.0-37.0); Mean Corpuscular Hgb 30.4 pg (27.0-31.0); Mean Corpuscular Volume 92.7 fL (80.0-94.0); Mean Platelet Volume 9.9 fL (7.4-10.4); Nucleated Red Blood Cells % 0 % (-); Platelet Count 272 10^3/uL (130-400); Red Blood Cell Count 3.03 10^6/uL (4.70-6.10); Red Cell Dist. Width 12.8 % (11.5-14.5); White Blood Cell Count 6.7 10^3/uL (4.8-10.8)
[2025-01-17 16:01] LABS: ALT (SGPT) 17 U/L (0-50); AST (SGOT) 36 U/L (17-59); Albumin 3.7 g/dl (3.5-5.0); Alkaline Phosphatase 105 U/L (38-126); Blood Urea Nitrogen 48 mg/dl (9-20); Calcium 10.2 mg/dl (8.4-10.2); Carbon Dioxide 28 mmol/L (22-30); Creatine Phosphokinase 576 U/L (55-170); Estimated Creatinine Clearance 51 ml/min; Glucose 95 mg/dl (70-99); Total Bilirubin 0.9 mg/dl (0.2-1.3); Total Protein 6.1 g/dl (6.3-8.2); eGFR 57.29
[2025-01-17 16:11] LABS: Chloride 102 mmol/L (98-107); Potassium 5.4 mmol/L (3.5-5.1); Sodium 142 mmol/L (135-145)
--- NOTE | 2025-01-17 19:37 | HPS.HSE ---
Addendum entered and electronically signed by Felicia Chanel DO 01/18/25 02:44:
I have seen and examined the patient. I have reviewed the patient with Marjan and agree with her history and physical and assessment and plan of care. Patient is a 74-year-old gentleman with past medical history as per below who recently had a left
knee replacement, and presents to the emergency department secondary to altered mental status. He has been having decreased oral intake. In the emergency department his labs are notable for hemoglobin of 9.1 with no known episodes of bleeding, and
recent hemoglobin 12.4 in November. Creatinine is 1.3 mildy increased from creatinine of 1.1 in November.
VSS, AF
PE:
Neuro positive for Right hand pill rolling, cogwheel rigidity, and tremor. flat affect.
CV RRR, no m/r/g
Lungs CTA b/l, no w/r/r
labs and image reviewed, as per below
A/P
#Encephalopathy post left knee replacement concern for infection versus anesthesia induced versus undiagnosed Parkinson's
-PT eval, neuro-checks
-check iron studies, B12, folate, in setting of worsening anemia without evidence for active bleeding
-add on TSH
# Acute on chronic Ambulatory dysfunction with balance difficulties and history of falls, discuss with Neurology possibly undiagnosed Parkinson's as etiology given neuro findings
- Check orthostatic vitals
-Recurrent falls, flat affect, memory impairment, pill-rolling right side
- Consult neurology concern for Parkinson's
-PT/OT/case management consult
CT head: No acute intracranial abnormalities.
Probable small old lacunar infarcts in the left lentiform nucleus
findings again seen with diffuse cortical atrophy with nonspecific white matter changes
Venous Doppler left lower extremity: No evidence of DVT in the left lower extremity
See further assessment and plan of care as per below.
Original Note:
Family Physician
-
Family Physician: Efraín Adam
Chief Complaint
-
Confusion for the past several days.
History of Present Illness
74-year-old male status post left knee replacement for osteoarthritis on December 16 after a fall. He was seen 2 days ago in the ER secondary to a fall post knee replacement he reports that the leg just gives out. He has noted swelling but states that
it is improved slightly he denies hitting his head or loss of consciousness. Today physical therapy came and found him on the floor at his home and recommended he come in for further evaluation. The patient's family member told the ER he has had
confusion. In the ER he was confused when talking to the ER physician thinking that he went to rehab after his knee surgery however he went home according to his . Patient is oriented to year, place does not know the president he tends to
ramble on when asked a question but dance around the subject. 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 I advised the patient he likely had to see Dr. Long after surgery to
evaluate his knee. The patient believes that the home care nurses can check that. He starts talking in a tangent about having bipolar disorder then how his 2 sisters killed themselves. The patient denies fever, chills, chest pain, palpitations,
cough, shortness of breath, abdominal pain, nausea, vomiting, diarrhea. According to his he has not had nothing to eat or drink in the past 2 days per EMS he was soaked with foul-smelling urine when they picked him up. He has past medical
history of hypertension, chronic back pain, headaches, CAD, orthostatic hypotension, osteoarthritis, status post knee replacement December 16, 2024, arthritis status post right reverse total shoulder arthroplasty 12/30/2021 Dr. Moreira, chronic ambulatory
dysfunction history of falls, chronic pain with history of chronic opiate dependence, multifactorial anemia HTN, HLD, CAD/NSTEMI 2009 treated medically, orthostatic hypotension, anxiety, depression, bipolar disorder, glaucoma, insomnia, obesity,
prediabetes, BPH, NOEL noncompliant with CPAP, GERD, colonic polyps, IBS, cholelithiasis asymptomatic, remote hep B, history of ileal erosions, frequent headaches, small lacunar infarct anterior limb of internal capsule bilaterally on head CT 2014,
cervical stenosis with radiculopathy, multilevel DDD, sciatica, BPH, Staph aureus and strep pyogenous of the right lower extremity 2008 treated with cefazolin
Medical History
Past Medical History
Past Medical History: Reports Other
Additional Past Medical History:
1. Osteoarthritis, status post right reverse total shoulder arthroplasty, 12/2021, by Dr. Damion Moreira.
2. Hypertension.
3. Hypercholesterolemia.
4. Coronary artery disease/NSTEMI, 2008, treated medically.
5. Orthostatic hypotension.
6. Obstructive sleep apnea, non-compliant with CPAP.
7. GERD.
8. Colon polyps.
9. Irritable bowel syndrome.
10. Cholelithiasis, asymptomatic.
11. Remote hepatitis B.
12. History of ileal erosions.
13. Frequent headaches.
14. Small lacunar infarct anterior limb of internal capsule bilaterally on head CT 2014.
15. Cervical stenosis with radiculopathy.
16. Multilevel degenerative disc disease.
17. Sciatica.
18. BPH.
19. Staph aureus and Strep pyogenes cellulitis of right lower extremity, 2008, treated with IV Cefazolin.
20. Ambulatory dysfunction with balance difficulties and history of falls.
21. Chronic pain syndrome with opioid dependence.
22. Multifactorial anemia.
23. Anxiety.
24. Depression.
25. Bipolar disorder.
26. Glaucoma.
27. Insomnia.
28. Prediabetes, A1c 5.7.
29. Obesity, BMI 30.9.
Past Surgical History: Reports Other
Social History
Tobacco: Non-smoker
Alcohol: None
Personal: (He reports his ex-, son, and sister in law will all be helping him post-procedure. He is hopeful to do outpatient PT starting the Friday after his surgery. )
Living: Alone (in a 2 story home with 1 step to enter in. His bedroom is reportedly on the second floor; however, he typically sleeps in a recliner on the first floor. There is a powder room on the first floor. )
Family History
Family History: Not pertinent
Allergies / Home Medications
Allergies reflects when Allergies were last updated in [employer].
Home Medications with original date entered in [employer]
Allergy/Medication List:
Allergies
Allergy/AdvReac Type Severity Reaction Status Date / Time
cyclobenzaprine HCl Allergy difficulty Verified 01/17/25 14:27
[From Flexeril] breathing
Home Medications
cyanocobalamin (vitamin B-12) 1,000 mcg tablet 1,000 mcg PO QPM Supplement 12/14/21
divalproex 500 mg tablet,extended release 24 hr 500 mg PO HS Seizures 12/14/21
ferrous sulfate 325 mg (65 mg iron) tablet (iron) 325 mg PO QPM Supplement 12/14/21
tamsulosin 0.4 mg capsule 0.4 mg PO DAILY Urinary issue 12/14/21
omeprazole 20 mg capsule,delayed release 20 mg PO DAILY Gastrointestinal issue 12/17/21
atorvastatin 20 mg tablet (Lipitor) 20 mg PO DAILY High Cholesterol 11/25/24
bupropion HCl 150 mg 24 hr tablet, extended release 150 mg PO DAILY Mental Health/Anxiety 11/25/24
duloxetine 60 mg capsule,delayed release (Cymbalta) 60 mg PO QPM Mental Health/Anxiety 11/25/24
metoprolol tartrate 25 mg tablet 12.5 mg PO DAILY Heart Disease/Condition 11/25/24
quetiapine 50 mg tablet 50 mg PO HS Mental Health/Anxiety 11/25/24
hydromorphone 12 mg tablet,extended release 24 hr 12 mg PO DAILY Chronic pain #0 tabs 12/17/24
lisinopril 2.5 mg tablet 2.5 mg PO DAILY Blood pressure #1 tab 12/17/24
biotin 10 mg tablet 10 mg PO DAILY 01/17/25
budesonide 3 mg capsule,delayed,extended release 3 mg PO DAILY 01/17/25
bupropion HCl 300 mg 24 hr tablet, extended release 300 mg PO DAILY 01/17/25
oxycodone 10 mg tablet 10 mg PO Q8HPRN PRN breakthrough pain 01/17/25
Review of Systems
-
History Source: Patient and Physician (ER record)
A 12 point ROS was completed and negative except as noted: Yes
Constitutional: Reports Fatigue and Other (Confusion oriented to name, year, place not president or current sequence of the events from surgery, flat affect, pill-rolling right side); Denies Fever or Chills
EENT: Denies Sore Throat or Runny Nose
Respiratory: Denies Cough or Trouble Breathing
Cardiac: Denies Chest Pain
Abdomen/GI: Denies Abdominal Pain, Nausea, Vomiting, Diarrhea, Constipated, Bloody Stools or Black Stools
: Denies Dysuria, Frequency, Flank Pain, Incontinence, Difficulty Voiding or Urgency
Musculoskeletal: Reports Other (Left knee incision intact no surrounding erythema or drainage); Denies Joint Pain or Edema
Skin: Denies Itching or Rash
Neurological: Reports Weakness (Generalized); Denies Dizzy or Headache
Endocrine: Reports No Symptoms
Hematologic/Lymphatic: Reports No Symptoms
Psych: Reports Calm
Physical Exam
Vital Signs
Vital Signs
Temp Pulse Resp BP Pulse Ox
98.6 F 89 13 128/61 97
01/17/25 14:23 01/17/25 18:15 01/17/25 18:15 01/17/25 18:00 01/17/25 18:42
Physical Exam
General: Comfortable, Conversant and Other (Flat affect); No Pain or Fever
HEENT: NormoCephalic, Anicteric, Moist mucous membranes, Atraumatic, PERRLA, [place] Conjunctivae and No Ptosis
Respiratory: Clear; No Wheezes, Rales or Rhonchi
Cardiac: S1/S2 and Regular Rhythm; No Murmur, Rub, Gallop or Peripheral Edema
GI: Soft, Non Tender, Non Distended, Normal Bowel Sounds and No Hepatosplenomegaly
Rectal: Deferred by Provider
Genito-urinary: Deferred by me
Musculoskeletal: No Clubbing, No Cyanosis, Edema, Left Lower Extremity (Trace edema left lower extremity status post left knee replacement 12/16/2024 no drainage from longitudinal incision to left knee no surrounding erythema) and Other (Pill-rolling
right side); No Edema, Left Upper Extremity, Edema, Right Upper Extremity or Edema, Right Lower Extremity
Skin: Warm and Dry; No Rash
Neuro: Awake, Alert, Oriented (To name, place but not year difficulty with timing of events since surgery 12/17/2023), Cranial Nerves Intact and No Sensory Deficits; No Slurred Speech, Facial Droop, Tremors or Sedated
Psych: Calm
Laboratory Results
-
01/17/25 15:24
01/17/25 15:24
Laboratory Results
Total Bilirubin 0.9 mg/dl (0.2-1.3) 01/17/25 15:24
AST 36 U/L (17-59) 01/17/25 15:24
ALT 17 U/L (0-50) 01/17/25 15:24
Alkaline Phosphatase 105 U/L (38-126) 01/17/25 15:24
Data Reviewed
-
Lab Data: Labs Reviewed by me
Impression/Plan
-
Impression/plan:
Admit to MedSurg
#Encephalopathy post left knee replacement concern for infection versus anesthesia induced versus undiagnosed Parkinson's
# Acute on chronic Ambulatory dysfunction with balance difficulties and history of falls.
Completed 14-day cefadroxil post left knee replacement on 01/10/2025
- Check orthostatic vitals
-Recurrent falls, flat affect, memory impairment, pill-rolling right side
- Consult neurology concern for Parkinson's
-PT/OT/case management consult
CT head: No acute intracranial abnormalities.
Probable small old lacunar infarcts in the left lentiform nucleus
findings again seen with diffuse cortical atrophy with nonspecific white matter changes
Venous Doppler left lower extremity: No evidence of DVT in the left lower extremity
#Foul-smelling urine with incontinence concern for UTI
#BPH
-Urinalysis negative
- Bladder scan protocol
- Continue Flomax with hold parameters
#Chronic pain syndrome with opioid dependence
-Continue hydromorphone 12 mg XR p.o. daily
- Continue oxycodone 10 mg every 4 hours as needed breakthrough pain, Lyrica 150 mg p.o. twice daily
- Continue bowel regimen with Colace, senna
# Hypertension\\Hx orthostatic hypotension
BP 128/61
-Check orthostatic vitals
#Blood loss anemia status post left knee replacement 12/16/2024
Hgb 9.2 <Hgb 12.4 on 11/25/2024
-Check iron panel, B12, folate
- Continue vitamin B12 1000 mcg p.o. daily, ferrous sulfate 325 mg every afternoon
#Hyperkalemia�mild
K5.4
IV NSS 60 cc an hour x2 liters
#Hx seizures
- Continue divalproex 500 mg 24-hour at bedtime
#CVA
#Small lacunar infarct anterior limb of internal capsule bilaterally on head CT 2014
# Per CT today 2024 small old lacunar infarcts in the left lentiform nucleus
- Continue atorvastatin 20 mg daily, aspirin 325 mg daily
#Osteoarthritis status post left knee replacement 12/16/2024 Dr. Long
#Osteoarthritis, status post right reverse total shoulder arthroplasty, 12/2021, by Dr. Damion Moreira
#Hypercholesterolemia
- Continue statin
#Coronary artery disease/NSTEMI, 2008- treated medically
-Continue aspirin, statin
# Obstructive sleep apnea, non-compliant with CPAP
#GERD
# Colon polyps.
#Irritable bowel syndrome
- Continue omeprazole 20 mg daily
#Anxiety/ Depression
# Bipolar disorder
- Continue Seroquel 50 mg at bedtime, Cymbalta 60 mg every afternoon, Wellbutrin 150 mg twice daily
#Glaucoma
#Insomnia
#Prediabetes, A1c 5.7
#Class I obesity, BMI 30.9.
Other PMH:
Staph aureus and Strep pyogenes cellulitis of right lower extremity, 2008, treated with IV Cefazolin.
Cervical stenosis with radiculopathy
Multilevel degenerative disc disease
Sciatica
Cholelithiasis, asymptomatic.
Remote hepatitis B.
History of ileal erosions.
Frequent headaches.
DVT prophylaxis
Subcu heparin
Full code
[2025-01-17 19:53] LABS: Urine Albumin Negative (Neg - Trace); Urine Bilirubin Negative (Negative); Urine Character Clear (Clear); Urine Color Yellow; Urine Glucose Negative (Negative); Urine Ketone 3+ (Negative); Urine Leukocyte 1+ (Negative); Urine Nitrite Negative (Negative); Urine Occult Blood Negative (Negative); Urine Specific Gravity 1.015 (<1.030); Urine Urobilinogen Negative (Neg - 1+)
[2025-01-17 20:11] LABS: Urine Red Blood Cell 0-2 /HPF (0-2); Urine Squamous Cell 0-2 /LPF (Few); Urine White Cell 0-2 /HPF (0-5)
--- NOTE | 2025-01-17 20:35 | PHANOTE ---
med rec tech(01/17/25)- Patient does not know what medications he is on, and does not have his medication list with him. He did not want to go over meds verbally due to mistakes he might make. Created list through [facility] visit from 12/29/24 as well as
[facility] records. Unable to confirm some medications due to them missing from either source.
[2025-01-17 20:58] LABS: Iron 39 ug/dl (49-181)
[2025-01-17 21:08] LABS: Percent Saturation 16 % (20-50); Total Iron Binding Capacity 241 ug/dl (261-462)
[2025-01-17 22:12] LABS: Folate > 20.0 ng/ml (2.76-20); Vitamin B12 874 pg/ml (239-931)
[2025-01-17] MEDS: ROXICODONE 10 MG PO (22:59)
[2025-01-17] MEDS: DEPAKOTE ER (24 HR RELEASE) 500 MG PO (23:00)
[2025-01-17] MEDS: WELLBUTRIN XL (24 hour extended release) 150 MG PO (23:00)
[2025-01-17 23:11] LABS: TSH Reflex To Free T4 1.06 uIU/ml (0.47-4.68)
[2025-01-18] VITALS (7 sets, daily range): BP systolic 95–143; BP diastolic 53–80; PULSE 76–91; O2SAT 97; BMI 29.1
--- NOTE | 2025-01-18 07:48 | W.PN.UPDATE ---
Update Note
Progress Note Update
Patient was admitted yesterday following a fall and with confusion. He is s/p left TKA on 12/16/[address] Perez. Currently, his is sitting up on the side of the bed. He reports no pain in the knee. He does report that his knee feels stiff. Directed
exam of the left knee reveals a well healed surgical scar without erythema or drainage. ROM 3-100. calf soft and nontender. NVI distally. In regards to left knee, Mr. Phipps is doing well. Recommend PT/OT as able. Ambulate with assistive device.
Continue with ice, elevation, and pain medications as needed. Appreciate the care of primary team. Please reach out with any questions or concerns.
[2025-01-18 08:28] LABS: % Basophils 0.4 % (0-2); % Eosinophils 7.1 % (0-6); % Lymphocytes 32.7 % (20.5-51.1); % Monocytes 6.3 % (1.7-9.3); % Neutrophils 53.5 % (42.2-75.2); Absolute Eosinophils 0.4 10^3/uL (0-0.7); Absolute Lymphocytes 1.8 10^3/uL (1.2-3.4); Absolute Monocytes 0.3 10^3/uL (0.1-0.6); Absolute Neutrophils 2.9 10^3/uL (1.4-6.5); Hematocrit 26.7 % (39.0-52.0); Mean Corp Hgb Conc. 33.7 g/dL (33.0-37.0); Mean Corpuscular Hgb 31.3 pg (27.0-31.0); Mean Corpuscular Volume 92.7 fL (80.0-94.0); Mean Platelet Volume 10.2 fL (7.4-10.4); Nucleated Red Blood Cells % 0 % (-); Platelet Count 269 10^3/uL (130-400); Red Blood Cell Count 2.88 10^6/uL (4.70-6.10); Red Cell Dist. Width 13.2 % (11.5-14.5); White Blood Cell Count 5.4 10^3/uL (4.8-10.8)
[2025-01-18] MEDS: FLOMAX 0.4 MG PO (08:44)
[2025-01-18] MEDS: COLACE 100 MG PO ×2 (08:44→20:45)
[2025-01-18 08:46] LABS: ALT (SGPT) 19 U/L (0-50); AST (SGOT) 48 U/L (17-59); Albumin 3.7 g/dl (3.5-5.0); Alkaline Phosphatase 96 U/L (38-126); Blood Urea Nitrogen 34 mg/dl (9-20); Calcium 9.5 mg/dl (8.4-10.2); Carbon Dioxide 26 mmol/L (22-30); Chloride 106 mmol/L (98-107); Estimated Creatinine Clearance 64 ml/min; Glucose 89 mg/dl (70-99); Potassium 4.2 mmol/L (3.5-5.1); Sodium 142 mmol/L (135-145); Total Bilirubin 0.7 mg/dl (0.2-1.3); Total Protein 5.9 g/dl (6.3-8.2); eGFR > 60.00
[2025-01-18] MEDS: ZESTRIL 2.5 MG PO (08:46)
[2025-01-18] MEDS: SENOKOT 17.2 MG PO ×2 (08:46→20:45)
[2025-01-18] MEDS: LOPRESSOR 25 MG PO (08:46)
[2025-01-18] MEDS: PROTONIX 40 MG PO (08:46)
[2025-01-18] MEDS: LIPITOR 20 MG PO (08:46)
[2025-01-18] MEDS: LYRICA 150 MG PO (08:50)
[2025-01-18] MEDS: WELLBUTRIN XL (24 hour extended release) 150 MG PO ×2 (08:50→20:46)
[2025-01-18] MEDS: HEPARIN 5000 UNITS SC ×2 (08:54→20:46)
[2025-01-18] MEDS: ASPIR LOW (ENTERIC COATED) 81 MG PO (08:57)
--- NOTE | 2025-01-18 11:39 | CON.NEURO ---
Neuro Assessment/Plan
Assessment
Parkinson's disease
Plan
start sinemet 25/100 TID before meals (absorbs better on an empty stomach)
Consultation
Order
Date of Consultation: 01/18/25
Requesting Provider: Meek Collier
Reason for Consult: Parkinson's
Subjective/Objective
Subjective Data
Date of Service: January 18, 2025
74 year old man admitted for altered mental status. recent left knee replacement. +frequent falls, shuffling gait, +resting tremor, poor sleep.
Objective Data
Vital Signs
Temp Pulse Resp BP Pulse Ox
37.1 C 87 18 131/71 99
01/18/25 07:00 01/18/25 07:00 01/18/25 07:00 01/18/25 07:00 01/18/25 08:40
Lab Results
01/18/25 07:35
01/18/25 07:35
Sodium 142 mmol/L (135-145) 01/18/25 07:35
Potassium 4.2 mmol/L (3.5-5.1) 01/18/25 07:35
BUN 34 mg/dl (9-20) H 01/18/25 07:35
Glucose 89 mg/dl (70-99) 01/18/25 07:35
Calcium 9.5 mg/dl (8.4-10.2) 01/18/25 07:35
Vitamin B12 874 pg/ml (239-931) 01/17/25 15:24
Patient Allergies
cyclobenzaprine HCl [From Flexeril] Allergy (Verified 01/17/25 14:27)
difficulty breathing
Physical Exam
-
AAO x3, speech clear, language intact, speech tangential, poor recollection of recent events
masked fascies,
+resting tremor worse on the right
+bradykinesia,
+cogwheel rigidity.
Medications
-
Active Medications
Generic Name Dose Route Start Last Admin
Trade Name Bartolo VARELAN Reason Stop Dose Admin
Aspirin 81 mg 01/18/25 09:00 01/18/25 08:57
Aspirin 81 Mg (Enteric Coated) Tablet PO 02/15/25 08:59 81 mg
DAILY CARMITA Administration
Atorvastatin Calcium 20 mg 01/18/25 08:00 01/18/25 08:46
Atorvastatin (Lipitor) 20 Mg Tablet PO 02/15/25 07:59 20 mg
DAILY CARMITA Administration
Bupropion HCl 150 mg 01/18/25 08:00 01/18/25 08:50
Bupropion (24hr) Extended Release 150 Mg Tablet PO 02/15/25 07:59 150 mg
DAILY CARMITA Administration
Bupropion HCl 150 mg 01/17/25 23:00 01/17/25 23:00
Bupropion (24hr) Extended Release 150 Mg Tablet PO 02/14/25 22:59 150 mg
HS CARMITA Administration
Cyanocobalamin 1,000 mcg 01/18/25 18:00
Cyanocobalamin 1,000 Mcg Tablet PO 02/15/25 17:59
QPM CARMITA
Divalproex Sodium 500 mg 01/17/25 22:14 01/17/25 23:00
Divalproex 500 Mg Extended Release (24 Hr) Tablet PO 02/14/25 22:13 500 mg
HS CARMITA Administration
Docusate Sodium 100 mg 01/18/25 08:00 01/18/25 08:44
Docusate Sodium 100 Mg Capsule PO 02/15/25 07:59 100 mg
BID CARMITA Administration
Duloxetine HCl 60 mg 01/18/25 18:00
Duloxetine Delayed Release 60 Mg Capsule PO 02/15/25 17:59
QPM CARMITA
Ferrous Sulfate 325 mg 01/18/25 18:00
Ferrous Sulfate 325 Mg Tablet PO 02/15/25 17:59
QPM CARMITA
Heparin Sodium 5,000 units 01/18/25 08:00 01/18/25 08:54
Heparin 5,000 Units/Ml 1 Ml Vial SC 02/15/25 07:59 5,000 units
Q12 CARMITA Administration
Sodium Chloride 1,000 mls @ 60 mls/hr 01/17/25 22:14 01/17/25 22:58
Nss IV 01/19/25 07:33 1,000 mls
.[id number] CARMITA Administration
Lisinopril 2.5 mg 01/18/25 08:00 01/18/25 08:46
Lisinopril 2.5 Mg Tablet PO 02/15/25 07:59 2.5 mg
DAILY CARMITA Administration
Metoprolol Tartrate 25 mg 01/18/25 08:00 01/18/25 08:46
Metoprolol 25 Mg Regular Release Tablet PO 02/15/25 07:59 25 mg
DAILY CARMITA Administration
Pt's Own ( 12 mg 01/18/25 08:00
Hydromorphone 12 Mg PO 02/15/25 07:59
Tablet Extended DAILY CARMITA
Release 24 Hr)
Oxycodone HCl 10 mg 01/17/25 22:14 01/17/25 22:59
Oxycodone 10 Mg Regular Release Tablet PO 01/31/25 22:13 10 mg
Q4HPRN PRN Administration
breakthrough pain
Pantoprazole Sodium 40 mg 01/18/25 08:00 01/18/25 08:46
Pantoprazole 40 Mg Delayed Release Tablet PO 02/15/25 07:59 40 mg
DAILY CARMITA Administration
Pregabalin 150 mg 01/18/25 08:00 01/18/25 08:50
Pregabalin 75 Mg Capsule PO 02/15/25 07:59 150 mg
BID CARMITA Administration
Quetiapine Fumarate 50 mg 01/18/25 22:00
Quetiapine 25 Mg Tablet PO 02/15/25 21:59
HS CARMITA
Sennosides 17.2 mg 01/18/25 08:00 01/18/25 08:46
Sennosides (Senokot) 8.6 Mg Tablet PO 02/15/25 07:59 17.2 mg
BID CARMITA Administration
Sodium Chloride 0 flush 01/17/25 23:00
Sodium Chloride 0.9% (Flush) Syringe IV 02/14/25 22:59
PER PROTOCOL CARMITA
Tamsulosin HCl 0.4 mg 01/18/25 08:00 01/18/25 08:44
Tamsulosin 0.4 Mg Capsule PO 02/15/25 07:59 0.4 mg
DAILY CARMITA Administration
Home Medications
�Medication �Instructions �Recorded
cyanocobalamin (vitamin B-12) 1,000 mcg PO QPM Supplement 12/14/21
1,000 mcg tablet
divalproex 500 mg tablet,extended 500 mg PO HS Seizures 12/14/21
release 24 hr
ferrous sulfate 325 mg (65 mg 325 mg PO QPM Supplement 12/14/21
iron) tablet (iron)
tamsulosin 0.4 mg capsule 0.4 mg PO DAILY Urinary issue 12/14/21
omeprazole 20 mg capsule,delayed 20 mg PO DAILY Gastrointestinal 12/17/21
release issue
atorvastatin 20 mg tablet (Lipitor) 20 mg PO DAILY High Cholesterol 11/25/24
bupropion HCl 150 mg 24 hr tablet, 150 mg PO DAILY Mental 11/25/24
extended release Health/Anxiety
duloxetine 60 mg capsule,delayed 60 mg PO QPM Mental Health/Anxiety 11/25/24
release (Cymbalta)
metoprolol tartrate 25 mg tablet 12.5 mg PO DAILY Heart 11/25/24
Disease/Condition
quetiapine 50 mg tablet 50 mg PO HS Mental Health/Anxiety 11/25/24
hydromorphone 12 mg 12 mg PO DAILY Chronic pain #0 tabs 12/17/24
tablet,extended release 24 hr
lisinopril 2.5 mg tablet 2.5 mg PO DAILY Blood pressure #1 12/17/24
tab
biotin 10 mg tablet 10 mg PO DAILY 01/17/25
budesonide 3 mg 3 mg PO DAILY 01/17/25
capsule,delayed,extended release
bupropion HCl 300 mg 24 hr tablet, 300 mg PO DAILY 01/17/25
extended release
oxycodone 10 mg tablet 10 mg PO Q8HPRN PRN breakthrough 01/17/25
pain
--- NOTE | 2025-01-18 12:37 | W.PN.HOSP.TC ---
Today's Communication/Plan
-
Monitor vital signs see plan
PT/OT
Called family, left voicemail
Continue aspirin
Neurology to see
RN for med rec
Assessment / Plan
Assessment / Plan
General: Comfortable, Conversant
HEENT: NormoCephalic, Anicteric, Moist mucous membranes
Cardiac: S1/S2 and Regular Rhythm; No Murmur
GI: Soft, Non Tender, Non Distended
Musculoskeletal: mild edema
Neuro: Awake, Alert, No Slurred Speech
Psych: Calm
Encephalopathy post left knee replacement concern for infection versus undiagnosed Parkinson's
# Acute on chronic Ambulatory dysfunction with balance difficulties and history of falls.
Completed 14-day cefadroxil post left knee replacement on 01/10/2025. Completed full dose aspirin for DVT prophylaxis. Now on baby aspirin
- Check orthostatic vitals
-Recurrent falls, flat affect, memory impairment, pill-rolling right side
- Consulted neurology with concern for Parkinson's
-PT/OT rec SNF
CT head: No acute intracranial abnormalities.
Probable small old lacunar infarcts in the left lentiform nucleus
findings again seen with diffuse cortical atrophy with nonspecific white matter changes
Venous Doppler left lower extremity: No evidence of DVT in the left lower extremity
#Foul-smelling urine with incontinence concern for UTI
#BPH
-Urinalysis negative
- Bladder scan protocol
- Continue Flomax with hold parameters
#Chronic pain syndrome with opioid dependence
-Continue hydromorphone 12 mg XR p.o. daily
- Continue oxycodone 10 mg every 4 hours as needed breakthrough pain, Lyrica 150 mg p.o. twice daily
- Continue bowel regimen with Colace, senna
# Hypertension\\Hx orthostatic hypotension
-Check orthostatic vitals
#suspect Blood loss anemia status post left knee replacement 12/16/2024
- Continue vitamin B12 1000 mcg p.o. daily, ferrous sulfate 325 mg every afternoon
#Hyperkalemia�mild
resolved
#Hx seizures
- Continue divalproex 500 mg 24-hour at bedtime
#CVA
#Small lacunar infarct anterior limb of internal capsule bilaterally on head CT 2014
- Continue atorvastatin 20 mg daily, aspirin
#Osteoarthritis status post left knee replacement 12/16/2024 Dr. Long
#Osteoarthritis, status post right reverse total shoulder arthroplasty, 12/2021, by Dr. Damion Moreira
#Hypercholesterolemia
- Continue statin
#Coronary artery disease/NSTEMI, 2008- treated medically
-Continue aspirin, statin
# Obstructive sleep apnea, non-compliant with CPAP
#GERD
# Colon polyps.
#Irritable bowel syndrome
- Continue omeprazole 20 mg daily
#Anxiety/ Depression
# Bipolar disorder
- Continue Seroquel 50 mg at bedtime, Cymbalta 60 mg every afternoon, Wellbutrin 150 mg twice daily
#Glaucoma
#Insomnia
#Prediabetes, A1c 5.7
#Class I obesity, BMI 30.9.
Other PMH:
Staph aureus and Strep pyogenes cellulitis of right lower extremity, 2008, treated with IV Cefazolin.
Cervical stenosis with radiculopathy
Multilevel degenerative disc disease
Sciatica
Cholelithiasis, asymptomatic.
Remote hepatitis B.
History of ileal erosions.
Frequent headaches.
DVT prophylaxis
Subcu heparin
Full code
Anticipated Discharge: Within 24 hours
Subjective/Interval History
-
Date of Service: January 18, 2025
denies nausea
Objective Data
-
Labs:
Laboratory Results
01/18/25
07:35
WBC 5.4
Hgb 9.0 L
Hct 26.7 L
Plt Count 269
Sodium 142
Potassium 4.2
Chloride 106
Carbon Dioxide 26
BUN 34 H
Creatinine 1.0
Glucose 89
Calcium 9.5
Total Bilirubin 0.7
AST 48
ALT 19
Alkaline Phosphatase 96
Vital Signs:
Vital Signs
Temp Pulse Resp BP Pulse Ox
98.7 F 87 18 131/71 99
01/18/25 07:00 01/18/25 07:00 01/18/25 07:00 01/18/25 07:00 01/18/25 08:40
I&O
01/17/25 01/18/25 01/19/25
06:59 06:59 06:59
Intake Total 240 / 240
Balance 240 / 240
[2025-01-18] MEDS: NSS 1000 IV (13:16)
--- NOTE | 2025-01-18 16:36 | CM ---
product manager financial services reviewed patient's chart and met with patient and patient lives alone in a 2 story home, one step to enter, patient is independent with adl's and ambulation, patient has a cane, walker and shower chair in home, patient drives, home when
stable, no needs.
PCP: Dr. Adam
Pharmacy: [facility].
[2025-01-18] MEDS: CYMBALTA DELAYED RELEASE 60 MG PO (17:35)
[2025-01-18] MEDS: FEOSOL 325 MG PO (17:35)
[2025-01-18] MEDS: VITAMIN B-12 1000 MCG PO (17:35)
[2025-01-18] MEDS: SEROQUEL 50 MG PO (20:45)
[2025-01-18] MEDS: DEPAKOTE ER (24 HR RELEASE) 500 MG PO (20:45)
[2025-01-19 06:00] VITALS: BMI 29.3
[2025-01-19 07:56] LABS: % Basophils 0.7 % (0-2); % Eosinophils 9.4 % (0-6); % Immature Granulocytes 0.2 % (0-0.5); % Lymphocytes 49.1 % (20.5-51.1); % Monocytes 7.5 % (1.7-9.3); % Neutrophils 33.1 % (42.2-75.2); Absolute Eosinophils 0.4 10^3/uL (0-0.7); Absolute Lymphocytes 2.1 10^3/uL (1.2-3.4); Absolute Monocytes 0.3 10^3/uL (0.1-0.6); Absolute Neutrophils 1.4 10^3/uL (1.4-6.5); Hematocrit 28.9 % (39.0-52.0); Hemoglobin 9.1 g/dL (13.0-18.0); Mean Corp Hgb Conc. 31.5 g/dL (33.0-37.0); Mean Corpuscular Hgb 30.5 pg (27.0-31.0); Mean Platelet Volume 10.3 fL (7.4-10.4); Nucleated Red Blood Cells % 0 % (-); Platelet Count 239 10^3/uL (130-400); Red Blood Cell Count 2.98 10^6/uL (4.70-6.10); Red Cell Dist. Width 13.2 % (11.5-14.5); White Blood Cell Count 4.2 10^3/uL (4.8-10.8)
[2025-01-19 08:21] LABS: ALT (SGPT) 20 U/L (0-50); AST (SGOT) 39 U/L (17-59); Albumin 3.2 g/dl (3.5-5.0); Alkaline Phosphatase 88 U/L (38-126); Blood Urea Nitrogen 25 mg/dl (9-20); Carbon Dioxide 28 mmol/L (22-30); Chloride 109 mmol/L (98-107); Creatine Phosphokinase 394 U/L (55-170); Estimated Creatinine Clearance 71 ml/min; Glucose 102 mg/dl (70-99); Potassium 3.9 mmol/L (3.5-5.1); Sodium 145 mmol/L (135-145); Total Bilirubin 0.3 mg/dl (0.2-1.3); Total Protein 5.5 g/dl (6.3-8.2); eGFR > 60.00
[2025-01-19 08:36] VITALS: BP 120/67; BP 132/68; BP 133/67; PULSE 63; PULSE 68; PULSE 79
[2025-01-19] MEDS: LOPRESSOR 25 MG PO (08:36)
[2025-01-19] MEDS: SINEMET 25-100 1 TABLET PO ×3 (08:36→17:04)
[2025-01-19] MEDS: PROTONIX 40 MG PO (08:36)
[2025-01-19] MEDS: COLACE 100 MG PO ×2 (08:36→21:25)
[2025-01-19] MEDS: FLOMAX 0.4 MG PO (08:36)
[2025-01-19] MEDS: ZESTRIL 2.5 MG PO (08:36)
[2025-01-19] MEDS: WELLBUTRIN XL (24 hour extended release) 150 MG PO ×2 (08:36→21:26)
[2025-01-19] MEDS: SENOKOT 17.2 MG PO ×2 (08:36→21:26)
[2025-01-19] MEDS: LIPITOR 20 MG PO (08:37)
[2025-01-19] MEDS: ASPIR LOW (ENTERIC COATED) 81 MG PO (08:37)
[2025-01-19] MEDS: HEPARIN 5000 UNITS SC ×2 (08:38→21:26)
--- NOTE | 2025-01-19 09:32 | PN.CDI ---
CDI
- -
CDI:
Physician Documentation Request
Admit Date: 01/17/25 21:40
Dear Doctor Nando,
Clinical Indicators:
Patient admitted with concern for Parkinson's; PMH include multifactorial anemia.
01/18 PN, '#suspect Blood loss anemia status post left knee replacement 12/16/2024- Continue vitamin B12 1000 mcg p.o. daily, ferrous sulfate 325 mg every afternoon'
Iron studies:
01/17/25
15:24
Iron 39 L
TIBC 241 L
% Saturation 16 L
Ferritin 316.0
Based on the above, could you clarify, in your progress note, which of the following is the most likely type of anemia you are evaluating, monitoring and/or treating?
Acute blood loss anemia
Chronic iron deficiency anemia due to blood loss
Vitamin B deficiency anemia
Other, please specify
Use of terms such as suspected, likely, concern for, or probable (associated with a specific diagnosis that is being evaluated, monitored, or treated as if it exists) are acceptable and can be coded in the inpatient setting, when documented at the
time of discharge.
Thank you,
Raven Madden RN BSN
CDI Specialist
available via tiger text
Please use your independent medical judgment in providing your response.
--- NOTE | 2025-01-19 10:48 | CM ---
Addendum entered by Renita Rowell 01/19/25 11:30:
Plan; Waiting on Auth.
Addendum entered by Renita Rowell 01/19/25 11:23:
Patient has been accepted at [facility] and bed is available today, oil field caser contacted patient's insurance and faxed all clinicals to [phone], pending ref# [id number].
Original Note:
Physical therapy are recommending skilled placement referrals sent to [facility] and [facility], per admissions at [facility] they are out of network with insurance. Waiting on a determination from [facility].
Plan; Skilled placement
--- NOTE | 2025-01-19 12:03 | W.PN.HOSP.TC ---
Today's Communication/Plan
-
Monitor vital signs see plan
Discussed with ex-, she will be bringing all the medication bottles today and will have pharmacy verify all his medications
Discharge planning
Continue Sinemet per neurology
Assessment / Plan
Assessment / Plan
General: Comfortable, Conversant
HEENT: NormoCephalic, Anicteric, Moist mucous membranes
Cardiac: S1/S2 and Regular Rhythm; No Murmur
GI: Soft, Non Tender, Non Distended
Musculoskeletal: mild edema
Neuro: Awake, Alert, No Slurred Speech
Psych: Calm
Encephalopathy post left knee replacement concern for infection versus undiagnosed Parkinson's
# Acute on chronic Ambulatory dysfunction with balance difficulties and history of falls.
Completed 14-day cefadroxil post left knee replacement on 01/10/2025. Completed full dose aspirin for DVT prophylaxis. Now on baby aspirin
- Check orthostatic vitals
-Recurrent falls, flat affect, memory impairment, pill-rolling right side
- Consulted neurology with concern for Parkinson's. Neurology following. Started on Sinemet
-PT/OT rec SNF
CT head: No acute intracranial abnormalities.
Probable small old lacunar infarcts in the left lentiform nucleus
findings again seen with diffuse cortical atrophy with nonspecific white matter changes
Venous Doppler left lower extremity: No evidence of DVT in the left lower extremity
#Foul-smelling urine with incontinence concern for UTI
#BPH
-Urinalysis negative
- Bladder scan protocol
- Continue Flomax with hold parameters
#Chronic pain syndrome with opioid dependence
-Continue hydromorphone 12 mg XR p.o. daily
- Continue oxycodone 10 mg every 4 hours as needed , not on Lyrica anymore
- Continue bowel regimen with Colace, senna
# Hypertension\\Hx orthostatic hypotension
-Check orthostatic vitals
# Anemia is multifactorial, suspect Blood loss anemia status post left knee replacement 12/16/2024 and anemia of chronic disease along with iron and vitamin B12 deficiency
- Continue vitamin B12 1000 mcg p.o. daily, ferrous sulfate 325 mg every afternoon
#Hyperkalemia�mild
resolved
#Hx seizures
- Continue divalproex 500 mg 24-hour at bedtime
#CVA
#Small lacunar infarct anterior limb of internal capsule bilaterally on head CT 2014
- Continue atorvastatin 20 mg daily, aspirin
#Osteoarthritis status post left knee replacement 12/16/2024 Dr. Long
#Osteoarthritis, status post right reverse total shoulder arthroplasty, 12/2021, by Dr. Damion Moreira
#Hypercholesterolemia
- Continue statin
#Coronary artery disease/NSTEMI, 2008- treated medically
-Continue aspirin, statin
# Obstructive sleep apnea, non-compliant with CPAP
#GERD
# Colon polyps.
#Irritable bowel syndrome
- Continue omeprazole 20 mg daily
#Anxiety/ Depression
# Bipolar disorder
- Continue Seroquel 50 mg at bedtime, Cymbalta 60 mg every afternoon, Wellbutrin 150 mg twice daily
Will need to verify these medications, discussed with patient's ex- who will be bringing all the bottles from home and will have pharmacy verify on his medications.
#Glaucoma
#Insomnia
#Prediabetes, A1c 5.7
#Class I obesity, BMI 30.9.
Other PMH:
Staph aureus and Strep pyogenes cellulitis of right lower extremity, 2008, treated with IV Cefazolin.
Cervical stenosis with radiculopathy
Multilevel degenerative disc disease
Sciatica
Cholelithiasis, asymptomatic.
Remote hepatitis B.
History of ileal erosions.
Frequent headaches.
DVT prophylaxis
Subcu heparin
Full code
Anticipated Discharge: Within 24 hours
Subjective/Interval History
-
Date of Service: January 19, 2025
denies pain
Objective Data
-
Labs:
Laboratory Results
01/19/25
06:55
WBC 4.2 L
Hgb 9.1 L
Hct 28.9 L
Plt Count 239
Sodium 145
Potassium 3.9
Chloride 109 H
Carbon Dioxide 28
BUN 25 H
Creatinine 0.9
Glucose 102 H
Calcium 9.0
Total Bilirubin 0.3
AST 39
ALT 20
Alkaline Phosphatase 88
Vital Signs:
Vital Signs
Temp Pulse Resp BP Pulse Ox
97.9 F 68 20 137/75 99
01/19/25 08:36 01/19/25 08:36 01/19/25 08:36 01/18/25 23:22 01/19/25 08:45
I&O
01/18/25 01/19/25 01/20/25
06:59 06:59 06:59
Intake Total 240 / 240 1500 / 1500
Balance 240 / 240 1500 / 1500
[2025-01-19 15:34] VITALS: BP 154/74
[2025-01-19] MEDS: VITAMIN B-12 1000 MCG PO (17:03)
[2025-01-19] MEDS: CYMBALTA DELAYED RELEASE 60 MG PO (17:03)
[2025-01-19] MEDS: FEOSOL 325 MG PO (17:03)
[2025-01-19] MEDS: DEPAKOTE ER (24 HR RELEASE) 500 MG PO (21:25)
[2025-01-19 23:20] VITALS: BP 120/60
[2025-01-20] MEDS: ROXICODONE 10 MG PO (01:11)
[2025-01-20 06:00] VITALS: BMI 29.5
[2025-01-20 07:30] VITALS: BP 134/74
[2025-01-20 07:41] LABS: % Basophils 0.4 % (0-2); % Eosinophils 8.1 % (0-6); % Immature Granulocytes 0.2 % (0-0.5); % Lymphocytes 37.2 % (20.5-51.1); % Monocytes 7.3 % (1.7-9.3); % Neutrophils 46.8 % (42.2-75.2); Absolute Eosinophils 0.4 10^3/uL (0-0.7); Absolute Lymphocytes 1.8 10^3/uL (1.2-3.4); Absolute Monocytes 0.4 10^3/uL (0.1-0.6); Absolute Neutrophils 2.3 10^3/uL (1.4-6.5); Hematocrit 26.3 % (39.0-52.0); Hemoglobin 8.5 g/dL (13.0-18.0); Mean Corp Hgb Conc. 32.3 g/dL (33.0-37.0); Mean Corpuscular Hgb 30.4 pg (27.0-31.0); Mean Corpuscular Volume 93.9 fL (80.0-94.0); Mean Platelet Volume 10.3 fL (7.4-10.4); Nucleated Red Blood Cells % 0 % (-); Platelet Count 243 10^3/uL (130-400); Red Cell Dist. Width 12.9 % (11.5-14.5); White Blood Cell Count 4.9 10^3/uL (4.8-10.8)
[2025-01-20 08:17] LABS: ALT (SGPT) 15 U/L (0-50); AST (SGOT) 26 U/L (17-59); Albumin 2.9 g/dl (3.5-5.0); Alkaline Phosphatase 83 U/L (38-126); Blood Urea Nitrogen 21 mg/dl (9-20); Calcium 8.6 mg/dl (8.4-10.2); Carbon Dioxide 31 mmol/L (22-30); Chloride 109 mmol/L (98-107); Creatine Phosphokinase 193 U/L (55-170); Estimated Creatinine Clearance 80 ml/min; Glucose 94 mg/dl (70-99); Potassium 4.2 mmol/L (3.5-5.1); Sodium 144 mmol/L (135-145); Total Bilirubin 0.3 mg/dl (0.2-1.3); eGFR > 60.00
[2025-01-20] MEDS: ZESTRIL 2.5 MG PO (09:26)
[2025-01-20] MEDS: LIPITOR 20 MG PO (09:26)
[2025-01-20] MEDS: LOPRESSOR 25 MG PO (09:26)
[2025-01-20] MEDS: SINEMET 25-100 1 TABLET PO ×3 (09:26→15:53)
[2025-01-20] MEDS: SENOKOT 17.2 MG PO ×2 (09:26→20:36)
[2025-01-20] MEDS: WELLBUTRIN XL (24 hour extended release) 150 MG PO ×2 (09:27→22:04)
[2025-01-20] MEDS: ASPIR LOW (ENTERIC COATED) 81 MG PO (09:27)
[2025-01-20] MEDS: HEPARIN 5000 UNITS SC (09:27)
[2025-01-20] MEDS: PROTONIX 40 MG PO (09:27)
[2025-01-20] MEDS: COLACE 100 MG PO ×2 (09:27→20:34)
[2025-01-20] MEDS: ENTOCORT EC 3 MG PO (09:27)
[2025-01-20] MEDS: FLOMAX 0.4 MG PO (09:29)
--- NOTE | 2025-01-20 09:53 | CM ---
Addendum entered by Renita Rowell 01/20/25 14:30:
Patient has been approved for [facility] Auth [id number], 01/20 to 01/24, Follow up with Mita Nogueira, , .
[place]
[phone]

Original Note:
manager care management received a call this morn from Aniyah at [facility], patient's insurance and they were requesting updated notes from attending, notes were faxed this morning to and business case analyst is still waiting on a
determination. [facility] have accepted patient.
Plan; Awaiting Auth for skilled placement at [facility].
--- NOTE | 2025-01-20 12:04 | W.PN.HOSP.TC ---
Addendum entered and electronically signed by Meek Collier MD 01/20/25 16:35:
Notified by nurse that patient had a mechanical fall. Complaining of left shoulder pain. Also did hit his head. Will check CT head, left shoulder x-ray. No loss of consciousness. No neurodeficit. Patient was supposed to be discharged to SNF
today. Discussed with [id number] over the phone in case patient does not get discharged today pending imaging.
Addendum entered and electronically signed by Meek Collier MD 01/20/25 14:31:
Time of discharge 37 minutes
Original Note:
Today's Communication/Plan
-
Monitor vital signs see plan
SNF, awaiting authorization
PT/OT
Started Sinemet
Assessment / Plan
Assessment / Plan
General: Comfortable, Conversant
HEENT: NormoCephalic, Anicteric, Moist mucous membranes
Cardiac: S1/S2 and Regular Rhythm; No Murmur
GI: Soft, Non Tender, Non Distended
Musculoskeletal: mild edema
Neuro: Awake, Alert, No Slurred Speech
Psych: Calm
Encephalopathy likely multifactorial secondary to undiagnosed Parkinson's disease and recent knee replacement resulting in deconditioning
# Acute on chronic Ambulatory dysfunction with balance difficulties and history of falls.
Completed 14-day cefadroxil post left knee replacement on 01/10/2025. Completed full dose aspirin for DVT prophylaxis. Now on baby aspirin
Orthostatic negative
-Recurrent falls, flat affect, memory impairment, pill-rolling right side
- Consulted neurology with concern for Parkinson's. Neurology following. Started on Sinemet. Patient to follow-up with neurology outpatient
-PT/OT rec SNF
CT head: No acute intracranial abnormalities.
Probable small old lacunar infarcts in the left lentiform nucleus
findings again seen with diffuse cortical atrophy with nonspecific white matter changes
Venous Doppler left lower extremity: No evidence of DVT in the left lower extremity
#Foul-smelling urine with incontinence concern for UTI, after further evaluation no UTI
#BPH
-Urinalysis negative
- Bladder scan protocol
- Continue Flomax with hold parameters
#Chronic pain syndrome with opioid dependence
- Continue oxycodone as needed , not on Lyrica anymore
- Continue bowel regimen with Colace, senna
# Hypertension\\Hx orthostatic hypotension
Monitor
# Anemia is multifactorial, suspect Blood loss anemia status post left knee replacement 12/16/2024 and anemia of chronic disease along with iron and vitamin B12 deficiency
- Continue vitamin B12 1000 mcg p.o. daily, ferrous sulfate 325 mg every afternoon
#Hyperkalemia�mild
resolved
#Hx seizures
- Continue divalproex 500 mg 24-hour at bedtime
#CVA
#Small lacunar infarct anterior limb of internal capsule bilaterally on head CT 2014
- Continue atorvastatin 20 mg daily, aspirin
#Osteoarthritis status post left knee replacement 12/16/2024 Dr. Long
#Osteoarthritis, status post right reverse total shoulder arthroplasty, 12/2021, by Dr. Damion Moreira
#Hypercholesterolemia
- Continue statin
#Coronary artery disease/NSTEMI, 2008- treated medically
-Continue aspirin, statin
cw BB,lisinopril
# Obstructive sleep apnea, non-compliant with CPAP
#GERD
# Colon polyps.
#Irritable bowel syndrome
- Continue omeprazole 20 mg daily
#Anxiety/ Depression
# Bipolar disorder
- Continue Seroquel 25 mg at bedtime, Cymbalta 60 mg every afternoon, Wellbutrin 150 mg twice daily
Medications has been verified as best for knowledge and pharmacy assistance. Patient and ex- has brought multiple bottles from home.
#Glaucoma
#Insomnia
#Prediabetes, A1c 5.7
#Class I obesity, BMI 30.9.
Other PMH:
Staph aureus and Strep pyogenes cellulitis of right lower extremity, 2008, treated with IV Cefazolin.
Cervical stenosis with radiculopathy
Multilevel degenerative disc disease
Sciatica
Cholelithiasis, asymptomatic.
Remote hepatitis B.
History of ileal erosions.
Frequent headaches.
DVT prophylaxis
Subcu heparin
Full code
Anticipated Discharge: Today
Subjective/Interval History
-
Date of Service: January 20, 2025
Denies nausea
Objective Data
-
Labs:
Laboratory Results
01/20/25
06:21
WBC 4.9
Hgb 8.5 L
Hct 26.3 L
Plt Count 243
Sodium 144
Potassium 4.2
Chloride 109 H
Carbon Dioxide 31 H
BUN 21 H
Creatinine 0.8
Glucose 94
Calcium 8.6
Total Bilirubin 0.3
AST 26
ALT 15
Alkaline Phosphatase 83
Vital Signs:
Vital Signs
Temp Pulse Resp BP Pulse Ox
97.9 F 77 18 134/74 97
01/20/25 07:30 01/20/25 07:30 01/20/25 07:30 01/20/25 07:30 01/20/25 07:30
I&O
01/19/25 01/20/25 01/21/25
06:59 06:59 06:59
Intake Total 1500 / 1500 1080 / 1080
Balance 1500 / 1500 1080 / 1080
--- NOTE | 2025-01-20 14:31 | W.DCSUMMARY ---
Discharge Summary
Discharge Data
Date of Admission: 01/17/25
Date of Discharge: 01/21/25
-
Pending Results: No
Hospital Course
74-year-old male with past medical history of osteoarthritis, chronic pain syndrome with opioid dependence, hypertension, orthostatic hypotension, anemia, seizure, CVA, hyperlipidemia, coronary artery disease/NSTEMI, obstructive sleep apnea,
anxiety/depression, bipolar disorder, glaucoma, insomnia, prediabetes, obesity came to the hospital, after a fall with amatory dysfunction and encephalopathy which was likely thought was multifactorial secondary to Parkinson's disease and recent
knee replacement. Patient was seen by neurology who diagnosed patient with Parkinson's disease and patient was started on Sinemet. Patient was also evaluated by physical therapy who recommended SNF. While patient was in the hospital, he also had
mechanical fall in the hospital. CT head and left shoulder x-ray were negative for any acute findings.. Once patient's symptoms continue to improve, he was then discharged to rehab with instructions to follow-up with all his physicians outpatient.
Discharge Plan
-
Patient Disposition: Intermediate/SNF
Discharge Diagnosis/Procedures: Encephalopathy likely multifactorial secondary to undiagnosed Parkinson's disease and recent knee replacement
Newly diagnosed Parkinson's disease
Chronic pain syndrome with opioid dependence
Hypertension
Condition: Fair
Diet: As tolerated
Activity: With assistance and As tolerated
Driving Restrictions: Not until seen by your Dr
Bathing Restrictions: None
Referrals:
Efraín Adam MD [Family Provider] - in less than 1 week
Nikolay Fong MD [Active] - in two to three weeks
Prescriptions:
New
aspirin 81 mg Tablet,Delayed Release (Dr/Ec)
81 mg PO DAILY Qty: 0 0RF
docusate sodium 100 mg Capsule
100 mg PO BID Qty: 0 0RF
bupropion HCl 150 mg Tablet Extended Release 24 Hr
150 mg PO DAILY Qty: 0 0RF
bupropion HCl 150 mg Tablet Extended Release 24 Hr
150 mg PO HS Qty: 0 0RF
quetiapine 25 mg Tablet
25 mg PO HS Qty: 0 0RF
sennosides [Yuliana-gurvinder] 8.6 mg Tablet
17.2 mg PO BID Qty: 0 0RF
pantoprazole 40 mg Tablet,Delayed Release (Dr/Ec)
40 mg PO DAILY Qty: 0 0RF
metoprolol tartrate 25 mg Tablet
12.5 mg PO DAILY Qty: 0 0RF
tamsulosin 0.4 mg Capsule
0.4 mg PO DAILY Qty: 0 0RF
carbidopa-levodopa 25-100 mg Tablet
1 tab PO AC Qty: 0 0RF
lidocaine 4 % adhesive patch,medicated
2 patch topical DAILY Qty: 5 0RF
Rx Instructions:
Left shoulder
Continued
divalproex 500 MG tablet extended release 24 hr
500 mg PO HS
atorvastatin [Lipitor] 20 mg Tablet
20 mg PO DAILY
duloxetine [Cymbalta] 60 mg Capsule,Delayed Release(Dr/Ec)
60 mg PO QPM
lisinopril 2.5 MG tablet
2.5 mg PO DAILY Qty: 1 0RF
Rx Instructions:
HOLD IF systolic blood pressure <130 while on post-surgical narcotics.
tamsulosin [Flomax] 0.4 mg Capsule
0.4 mg PO DAILY
ferrous sulfate [Iron (ferrous sulfate)] 325 mg (65 mg iron) Tablet
325 mg PO DAILY
budesonide 3 mg Capsule,Delayed,Extend.Release
3 mg PO DAILY
multivit,tx w/iron (hematinic) Tablet
1 tab PO DAILY
mecobalamin (vitamin B12) [B12 Active] 1,000 mcg Tablet,Chewable
1,000 mcg PO DAILY
Changed
oxycodone 10 mg tablet
10 mg PO Q8HPRN PRN (Reason: breakthrough pain) Qty: 10 0RF
Discontinued
bupropion HCl 300 mg Tablet Extended Release 24 Hr
300 mg PO DAILY
melatonin 10 mg Tablet
10 mg PO HS PRN (Reason: sleep)
ASA,buffd(mag,aluminum hydrox) 325 mg Tablet
325 tab PO DAILY
Discharge Orders:
Discharge Patient (As Directed); Ordered 01/20/25
Ordered By: Meek Collier
Discharge Date and Time
Discharge Date/Time: 01/21/25 18:53
Print Language: IRISH
[2025-01-20 15:00] VITALS: BP 136/75
[2025-01-20] MEDS: CYMBALTA DELAYED RELEASE 60 MG PO (15:53)
[2025-01-20] MEDS: FEOSOL 325 MG PO (15:53)
[2025-01-20] MEDS: VITAMIN B-12 1000 MCG PO (15:53)
[2025-01-20 16:15] VITALS: BP 169/88
[2025-01-20] MEDS: HEPARIN SC ×2 (20:35→20:39)
[2025-01-20] MEDS: DEPAKOTE ER (24 HR RELEASE) 500 MG PO (22:04)
[2025-01-20] MEDS: SEROQUEL 25 MG PO (22:04)
[2025-01-20 23:10] VITALS: BP 119/68
[2025-01-21] MEDS: ROXICODONE 10 MG PO (00:49)
[2025-01-21] MEDS: LIDOCAINE 4% PATCH 2 PATCH TOPICAL (02:39)
[2025-01-21 06:00] VITALS: BMI 29.4
[2025-01-21 07:30] VITALS: BP 152/84
[2025-01-21 07:59] LABS: % Basophils 0.2 % (0-2); % Eosinophils 2.3 % (0-6); % Immature Granulocytes 0.2 % (0-0.5); % Lymphocytes 23.9 % (20.5-51.1); % Monocytes 8.7 % (1.7-9.3); % Neutrophils 64.7 % (42.2-75.2); Absolute Eosinophils 0.2 10^3/uL (0-0.7); Absolute Lymphocytes 1.6 10^3/uL (1.2-3.4); Absolute Monocytes 0.6 10^3/uL (0.1-0.6); Absolute Neutrophils 4.3 10^3/uL (1.4-6.5); Hematocrit 26.2 % (39.0-52.0); Hemoglobin 8.7 g/dL (13.0-18.0); Mean Corp Hgb Conc. 33.2 g/dL (33.0-37.0); Mean Corpuscular Hgb 30.5 pg (27.0-31.0); Mean Corpuscular Volume 91.9 fL (80.0-94.0); Nucleated Red Blood Cells % 0 % (-); Platelet Count 265 10^3/uL (130-400); Red Blood Cell Count 2.85 10^6/uL (4.70-6.10); White Blood Cell Count 6.7 10^3/uL (4.8-10.8)
[2025-01-21] MEDS: ASPIR LOW (ENTERIC COATED) 81 MG PO (08:29)
[2025-01-21] MEDS: SENOKOT PO (08:29)
[2025-01-21] MEDS: COLACE PO (08:29)
[2025-01-21] MEDS: LIPITOR 20 MG PO (08:29)
[2025-01-21] MEDS: SINEMET 25-100 1 TABLET PO ×2 (08:29→11:21)
[2025-01-21] MEDS: WELLBUTRIN XL (24 hour extended release) 150 MG PO (08:29)
[2025-01-21] MEDS: PROTONIX 40 MG PO (08:30)
[2025-01-21] MEDS: ENTOCORT EC 3 MG PO (08:30)
[2025-01-21] MEDS: FLOMAX 0.4 MG PO (08:30)
[2025-01-21] MEDS: HEPARIN 5000 UNITS SC (08:31)
[2025-01-21] MEDS: ZESTRIL 2.5 MG PO (08:33)
[2025-01-21] MEDS: LOPRESSOR 25 MG PO (08:33)
[2025-01-21 08:37] LABS: ALT (SGPT) 19 U/L (0-50); AST (SGOT) 27 U/L (17-59); Albumin 3.2 g/dl (3.5-5.0); Alkaline Phosphatase 87 U/L (38-126); Blood Urea Nitrogen 15 mg/dl (9-20); Carbon Dioxide 30 mmol/L (22-30); Chloride 107 mmol/L (98-107); Creatine Phosphokinase 237 U/L (55-170); Estimated Creatinine Clearance 80 ml/min; Glucose 100 mg/dl (70-99); Potassium 3.3 mmol/L (3.5-5.1); Sodium 144 mmol/L (135-145); Total Bilirubin 0.5 mg/dl (0.2-1.3); Total Protein 5.5 g/dl (6.3-8.2); eGFR > 60.00
[2025-01-21] MEDS: KCL 20 MEQ PO (09:04)
--- NOTE | 2025-01-21 11:42 | PTCARENOTE ---
report called to nurse Farrah villanueva [facility] phone number [phone], preparing for d/c
--- NOTE | 2025-01-21 11:44 | W.PN.HOSP.TC ---
Today's Communication/Plan
-
Monitor vitals
See plan
Discharge today
Pain control
Time of discharge 37 minutes
Assessment / Plan
Assessment / Plan
General: Comfortable, Conversant
HEENT: NormoCephalic, Anicteric, Moist mucous membranes
Cardiac: S1/S2 and Regular Rhythm; No Murmur
GI: Soft, Non Tender, Non Distended
Musculoskeletal: mild edema
Neuro: Awake, Alert, No Slurred Speech
Psych: Calm
Encephalopathy likely multifactorial secondary to undiagnosed Parkinson's disease and recent knee replacement resulting in deconditioning
# Acute on chronic Ambulatory dysfunction with balance difficulties and history of falls.
Completed 14-day cefadroxil post left knee replacement on 01/10/2025. Completed full dose aspirin for DVT prophylaxis. Now on baby aspirin
Orthostatic negative
-Recurrent falls, flat affect, memory impairment, pill-rolling right side
- Consulted neurology with concern for Parkinson's. Neurology following. Started on Sinemet. Patient to follow-up with neurology outpatient
-PT/OT rec SNF
CT head: No acute intracranial abnormalities.
Probable small old lacunar infarcts in the left lentiform nucleus
findings again seen with diffuse cortical atrophy with nonspecific white matter changes
Venous Doppler left lower extremity: No evidence of DVT in the left lower extremity
Was supposed to get discharged 01/20 however mechanical fall, shoulder and CT without acute abnormality. currently some pain which most of its chronic
#Foul-smelling urine with incontinence concern for UTI, after further evaluation no UTI
#BPH
-Urinalysis negative
- Bladder scan protocol
- Continue Flomax with hold parameters
#Chronic pain syndrome with opioid dependence
- Continue oxycodone as needed , not on Lyrica anymore
- Continue bowel regimen with Colace, senna
# Hypertension\\Hx orthostatic hypotension
Monitor
# Anemia is multifactorial, suspect Blood loss anemia status post left knee replacement 12/16/2024 and anemia of chronic disease along with iron and vitamin B12 deficiency
- Continue vitamin B12 1000 mcg p.o. daily, ferrous sulfate 325 mg every afternoon
#Hyperkalemia�mild
resolved
#Hx seizures
- Continue divalproex 500 mg 24-hour at bedtime
#CVA
#Small lacunar infarct anterior limb of internal capsule bilaterally on head CT 2014
- Continue atorvastatin 20 mg daily, aspirin
#Osteoarthritis status post left knee replacement 12/16/2024 Dr. Long
#Osteoarthritis, status post right reverse total shoulder arthroplasty, 12/2021, by Dr. Damion Moreira
#Hypercholesterolemia
- Continue statin
#Coronary artery disease/NSTEMI, 2008- treated medically
-Continue aspirin, statin
cw BB,lisinopril
# Obstructive sleep apnea, non-compliant with CPAP
#GERD
# Colon polyps.
#Irritable bowel syndrome
- Continue omeprazole 20 mg daily
#Anxiety/ Depression
# Bipolar disorder
- Continue Seroquel 25 mg at bedtime, Cymbalta 60 mg every afternoon, Wellbutrin 150 mg twice daily
Medications has been verified as best for knowledge and pharmacy assistance. Patient and ex- has brought multiple bottles from home.
#Glaucoma
#Insomnia
#Prediabetes, A1c 5.7
#Class I obesity, BMI 30.9.
Other PMH:
Staph aureus and Strep pyogenes cellulitis of right lower extremity, 2008, treated with IV Cefazolin.
Cervical stenosis with radiculopathy
Multilevel degenerative disc disease
Sciatica
Cholelithiasis, asymptomatic.
Remote hepatitis B.
History of ileal erosions.
Frequent headaches.
DVT prophylaxis
Subcu heparin
Full code
Anticipated Discharge: Today
Subjective/Interval History
-
Date of Service: January 21, 2025
Has some pain
Objective Data
-
Labs:
Laboratory Results
01/21/25
07:34
WBC 6.7
Hgb 8.7 L
Hct 26.2 L
Plt Count 265
Sodium 144
Potassium 3.3 L
Chloride 107
Carbon Dioxide 30
BUN 15
Creatinine 0.8
Glucose 100 H
Calcium 9.0
Total Bilirubin 0.5
AST 27
ALT 19
Alkaline Phosphatase 87
Vital Signs:
Vital Signs
Temp Pulse Resp BP Pulse Ox
98.9 F 86 22 152/84 98
01/21/25 07:30 01/21/25 08:33 01/21/25 07:30 01/21/25 08:33 01/21/25 07:30
I&O
01/20/25 01/21/25 01/22/25
06:59 06:59 06:59
Intake Total 1080 / 1080 780 / 780
Output Total 400 / 400
Balance 1080 / 1080 380 / 380
--- NOTE | 2025-01-21 13:10 | CM ---
Patient has been approved and bed is available at [facility] today, 3pm pickle processor by ambulance. Patient's son is aware of pickle processor time.
Patient has been approved for [facility] Auth [id number], 01/20 to 01/24, Follow up with Mita Nogueira, , .
[facility]
[phone]
[2025-01-21 15:23] VITALS: BP 146/76
== END 2025-01-21 18:53 | DRG 57 ==
LOC: 4 WEST ACU 21:40
PROVIDERS: Clinical Nurse Specialist Family Health; ADMITTING PHYSICIAN Internal Medicine; ATTENDING PHYSICIAN Internal Medicine; CONSULT PHYSICIAN Psychiatry & Neurology Clinical Neurophysiology; EMERGENCY PHYSICIAN Student in an Organized Health Care Education/Training Program; FAMILY PHYSICIAN Family Medicine
DX: G20.A1 Parkinson's disease without dyskinesia, without mention of fluctuations (principal); F11.20 Opioid dependence, uncomplicated; G93.49 Other encephalopathy; I10 Essential (primary) hypertension; I25.10 Atherosclerotic heart disease of native coronary artery without angina pectoris; I25.2 Old myocardial infarction; G47.33 Obstructive sleep apnea (adult) (pediatric); K21.9 Gastro-esophageal reflux disease without esophagitis; G89.4 Chronic pain syndrome; E87.5 Hyperkalemia; K58.9 Irritable bowel syndrome, unspecified; R73.03 Prediabetes; R32 Unspecified urinary incontinence; R29.6 Repeated falls; E66.811 Obesity, class 1; Z68.30 Body mass index [BMI] 30.0-30.9, adult; N40.1 Benign prostatic hyperplasia with lower urinary tract symptoms; M25.512 Pain in left shoulder; F31.9 Bipolar disorder, unspecified; S09.90XA Unspecified injury of head, initial encounter; W19.XXXA Unspecified fall, initial encounter; Y92.239 Unspecified place in hospital as the place of occurrence of the external cause; D63.8 Anemia in other chronic diseases classified elsewhere; E53.8 Deficiency of other specified B group vitamins; E61.1 Iron deficiency; E78.00 Pure hypercholesterolemia, unspecified; I95.1 Orthostatic hypotension; H40.9 Unspecified glaucoma; G47.00 Insomnia, unspecified; M54.12 Radiculopathy, cervical region; Z79.82 Long term (current) use of aspirin; Z79.899 Other long term (current) drug therapy; Z86.73 Personal history of transient ischemic attack (TIA), and cerebral infarction without residual deficits; Z96.652 Presence of left artificial knee joint; Z96.611 Presence of right artificial shoulder joint
CPT/HCPCS: 70450; 73030; 80053; 81003; 81015; 82550; 82607; 82728; 82746; 83540; 83550; 84443; 85025; 87086; 93005; 93971; 96360; 97110; 97116; 97163; 97167; 97535; 99285

== ENCOUNTER → 2025-01-24 12:56 | Outpatient (REF) | payer MEDICARE, OTHER, SELFPAY ==
[2025-01-24 13:13] LABS: % Basophils 0.4 % (0-2); % Eosinophils 1.6 % (0-6); % Immature Granulocytes 0.4 % (0-0.5); % Lymphocytes 14.7 % (20.5-51.1); % Monocytes 9.7 % (1.7-9.3); % Neutrophils 73.2 % (42.2-75.2); Absolute Eosinophils 0.1 10^3/uL (0-0.7); Absolute Lymphocytes 0.7 10^3/uL (1.2-3.4); Absolute Monocytes 0.5 10^3/uL (0.1-0.6); Absolute Neutrophils 3.6 10^3/uL (1.4-6.5); Hematocrit 29.9 % (39.0-52.0); Mean Corp Hgb Conc. 33.4 g/dL (33.0-37.0); Mean Corpuscular Hgb 30.9 pg (27.0-31.0); Mean Corpuscular Volume 92.3 fL (80.0-94.0); Mean Platelet Volume 10.4 fL (7.4-10.4); Nucleated Red Blood Cells % 0 % (-); Platelet Count 285 10^3/uL (130-400); Red Blood Cell Count 3.24 10^6/uL (4.70-6.10); Red Cell Dist. Width 13.6 % (11.5-14.5)
[2025-01-24 14:59] LABS: ALT (SGPT) 31 U/L (0-50); AST (SGOT) 40 U/L (17-59); Albumin 4.2 g/dl (3.5-5.0); Alkaline Phosphatase 91 U/L (38-126); Blood Urea Nitrogen 12 mg/dl (9-20); Calcium 8.5 mg/dl (8.4-10.2); Carbon Dioxide 24 mmol/L (22-30); Chloride 104 mmol/L (98-107); Glucose 86 mg/dl (70-99); Potassium 3.2 mmol/L (3.5-5.1); Sodium 143 mmol/L (135-145); Total Bilirubin 0.5 mg/dl (0.2-1.3); Total Protein 6.5 g/dl (6.3-8.2); eGFR > 60.00
== END ==
LOC: OLABP 12:56
PROVIDERS: ATTENDING PHYSICIAN Family Medicine
DX: G93.40 Encephalopathy, unspecified (principal); R53.1 Weakness; G20.A1 Parkinson's disease without dyskinesia, without mention of fluctuations
CPT/HCPCS: 36415; 80053; 85025

== ENCOUNTER → 2025-01-25 15:42 | Outpatient (REF) | payer OTHER, MEDICARE, SELFPAY | LOC: OLABP 15:42 | PROVIDERS: ATTENDING PHYSICIAN Family Medicine | DX: G93.40 Encephalopathy, unspecified (principal); R53.1 Weakness; G20.A1 Parkinson's disease without dyskinesia, without mention of fluctuations | CPT/HCPCS: 87324; 87449 ==

== ENCOUNTER → 2025-01-28 11:22 | Outpatient (REF) | payer OTHER, MEDICARE, SELFPAY ==
[2025-01-28 11:53] LABS: % Basophils 0.5 % (0-2); % Eosinophils 2.8 % (0-6); % Immature Granulocytes 0.2 % (0-0.5); % Lymphocytes 33.7 % (20.5-51.1); % Monocytes 6.9 % (1.7-9.3); % Neutrophils 55.9 % (42.2-75.2); Absolute Eosinophils 0.2 10^3/uL (0-0.7); Absolute Lymphocytes 2.1 10^3/uL (1.2-3.4); Absolute Monocytes 0.4 10^3/uL (0.1-0.6); Absolute Neutrophils 3.4 10^3/uL (1.4-6.5); Hematocrit 30.5 % (39.0-52.0); Hemoglobin 10.2 g/dL (13.0-18.0); Mean Corp Hgb Conc. 33.4 g/dL (33.0-37.0); Mean Corpuscular Hgb 31.1 pg (27.0-31.0); Mean Platelet Volume 10.4 fL (7.4-10.4); Nucleated Red Blood Cells % 0 % (-); Platelet Count 302 10^3/uL (130-400); Red Blood Cell Count 3.28 10^6/uL (4.70-6.10); Red Cell Dist. Width 13.3 % (11.5-14.5); White Blood Cell Count 6.1 10^3/uL (4.8-10.8)
[2025-01-28 12:57] LABS: ALT (SGPT) 27 U/L (0-50); AST (SGOT) 25 U/L (17-59); Alkaline Phosphatase 88 U/L (38-126); Blood Urea Nitrogen 16 mg/dl (9-20); Calcium 8.5 mg/dl (8.4-10.2); Carbon Dioxide 19 mmol/L (22-30); Chloride 107 mmol/L (98-107); Glucose 119 mg/dl (70-99); Potassium 3.5 mmol/L (3.5-5.1); Sodium 144 mmol/L (135-145); Total Bilirubin 0.4 mg/dl (0.2-1.3); Total Protein 6.2 g/dl (6.3-8.2); eGFR > 60.00
== END ==
LOC: OLABP 11:22
PROVIDERS: ATTENDING PHYSICIAN Family Medicine
DX: G93.40 Encephalopathy, unspecified (principal); R53.1 Weakness; G20.A1 Parkinson's disease without dyskinesia, without mention of fluctuations
CPT/HCPCS: 36415; 80053; 85025

== ENCOUNTER → 2025-02-17 13:53 | Outpatient (REF) | payer MEDICARE, SELFPAY ==
[2025-02-17 16:57] LABS: Depakane 39.6 ug/ml (50.0-120.0)
== END ==
LOC: HWLAB 13:53
PROVIDERS: ATTENDING PHYSICIAN Nurse Practitioner Psychiatric/Mental Health; FAMILY PHYSICIAN Family Medicine
DX: Z51.81 Encounter for therapeutic drug level monitoring (principal); Z79.899 Other long term (current) drug therapy
CPT/HCPCS: 36415; 80164

== ENCOUNTER → 2025-03-28 10:10 | Outpatient (REF) | payer MEDICARE, SELFPAY ==
[2025-03-28 13:42] LABS: Urine Albumin 1+ (Neg - Trace); Urine Bilirubin Negative (Negative); Urine Character Clear (Clear); Urine Color Yellow; Urine Glucose Negative (Negative); Urine Ketone Negative (Negative); Urine Leukocyte 1+ (Negative); Urine Nitrite Negative (Negative); Urine Occult Blood Negative (Negative); Urine Specific Gravity 1.025 (<1.030); Urine Urobilinogen Negative (Neg - 1+)
[2025-03-28 15:34] LABS: Urine Bacteria Few (Negative); Urine Mucus Few; Urine Red Blood Cell 0-2 /HPF (0-2); Urine Squamous Cell 0-2 /LPF (Few)
== END ==
LOC: HWLAB 10:10
PROVIDERS: ATTENDING PHYSICIAN Family Medicine
DX: R32 Unspecified urinary incontinence (principal)
CPT/HCPCS: 81003; 81015; 87086

== ENCOUNTER → 2025-04-02 11:53 | Outpatient (REF) | payer MEDICARE, SELFPAY ==
[2025-04-02 12:39] LABS: Urine Albumin Negative (Neg - Trace); Urine Bilirubin Negative (Negative); Urine Glucose Negative (Negative); Urine Ketone Negative (Negative); Urine Nitrite Negative (Negative); Urine Occult Blood Negative (Negative); Urine Urobilinogen Negative (Neg - 1+)
[2025-04-02 12:42] LABS: Urine Character Clear (Clear); Urine Color Yellow; Urine Leukocyte 1+ (Negative)
[2025-04-02 12:57] LABS: Urine Mucus Few
[2025-04-02 12:58] LABS: Urine Bacteria Few (Negative); Urine Hyaline Cast 0-2 /LPF (0-2); Urine Red Blood Cell 0-2 /HPF (0-2)
== END ==
LOC: REG 11:53
PROVIDERS: ATTENDING PHYSICIAN Family Medicine
DX: R39.15 Urgency of urination (principal)
CPT/HCPCS: 81003; 81015

== ENCOUNTER → 2025-04-11 12:43 | Outpatient (REF) | payer MEDICARE, SELFPAY | LOC: REG 12:43 | PROVIDERS: ATTENDING PHYSICIAN Family Medicine | DX: R32 Unspecified urinary incontinence (principal) | CPT/HCPCS: 87086 ==

== ENCOUNTER → 2025-05-11 13:09 | Outpatient (REF) | payer MEDICARE, SELFPAY | LOC: PAVMRI 13:09 | PROVIDERS: ATTENDING PHYSICIAN Nurse Practitioner Adult Health; FAMILY PHYSICIAN Family Medicine | DX: G20.A2 Parkinson's disease without dyskinesia, with fluctuations (principal); R29.6 Repeated falls; R41.3 Other amnesia | CPT/HCPCS: 70553; A9575 ==